=== PATIENT | female | born 1980 | race Caucasian/White ===

== ENCOUNTER 2016-09-29 16:10 | Observation (INO) | payer BC, OTHER ==
[2016-09-29] MEDS ORDERED: ASPIRIN 81 MG CHEW PO STA (16:47)
--- NOTE | 2016-09-29 16:50 | ED ---
Chest Pain HPI - General Chief Complaint: Chest Pain Stated Complaint: Chest Pain Time Seen by Provider: 09/29/16 16:29 Source: patient, RN notes reviewed Mode of arrival: ambulatory - History of Present Illness Initial Comments: 36-year-old female presents emergency Department chief complaint of chest pain. Patient states that approximately one hour ago she had a sudden onset of chest pain while she was laying down. Patient states that her symptoms are chest pain felt some radiation up to her left shoulder. She states she felt some paresthesias in her left arm. She states with onset of pain she had become very diaphoretic. Patient denies any nausea vomiting diarrhea constipation. Patient states she has no cardiac history denies hypertension, hyperlipidemia, diabetes. Patient states that she is occasional smoker. Patient states symptoms have resolved and only lasted a few minutes. Patient has no shortness of breath. Denies any headache or dizziness. - Related Data Home Medications Medication Instructions Recorded Confirmed Ibuprofen [Motrin] 800 mg PO DAILY PRN 09/29/16 09/29/16 Allergies Allergy/AdvReac Type Severity Reaction Status Date / Time No Known Allergies Allergy Verified 09/29/16 16:53 Review of Systems ROS Statement: Those systems with pertinent positive or pertinent negative responses have been documented in the HPI. ROS Other: All systems not noted in ROS Statement are negative. EKG Findings - EKG Comments: EKG Findings:: EKG performed at 16:41 normal sinus rhythm rate of 79 SD interval 142, QRS duration 100 QT/QTC 372/426 Past Medical History Past Medical History: No Reported History Additional Past Medical History / Comment(s): First was a for twins. This is her second . She has had care with Dr Petersen since 15 weeks. O+, abs neg, Rub Imm, Hep B neg, RPR NR, Quad normal. Normal anatomy US-had placenta previa that resolved. History of Any Multi-Drug Resistant Organisms: None Reported Past Surgical History: Section Past Anesthesia/Blood Transfusion Reactions: No Reported Reaction Past Psychological History: No Psychological Hx Reported Smoking Status: Former smoker Past Alcohol Use History: None Reported Past Drug Use History: None Reported - Past Family History Mother Family Medical History: Unable to Obtain General Exam General appearance: alert, in no apparent distress Head exam: Present: atraumatic, normocephalic, normal inspection ENT exam: Present: normal oropharynx Neck exam: Present: normal inspection, full ROM. Absent: tenderness, meningismus, lymphadenopathy Respiratory exam: Present: normal lung sounds bilaterally. Absent: respiratory distress, wheezes, rales, rhonchi, stridor, chest wall tenderness Cardiovascular Exam: Present: regular rate, normal rhythm, normal heart sounds. Absent: systolic murmur, diastolic murmur, rubs, gallop, clicks GI/Abdominal exam: Present: soft, normal bowel sounds. Absent: distended, tenderness, guarding, rebound, rigid Course Vital Signs 09/29/16 09/29/16 16:14 18:20 Temperature 97.8 F 98.2 F Pulse Rate 93 68 Respiratory 18 18 Rate Blood Pressure 113/66 105/66 O2 Sat by Pulse 100 98 Oximetry Disposition Clinical Impression: Unstable angina Disposition: ADMITTED IP TO THIS HOSP Condition: Fair
[2016-09-29 17:05] LABS: Anisocytosis Slight; Basophils % (A) 0 %; CH 23.3; CHCM 31.1; Eosinophils # (A) 0.2 k/uL (0-0.7); Eosinophils % (A) 2 %; HCT 34.8 % (34.0-46.0); HDW 2.79; HGB 10.8 gm/dL (11.4-16.0); Hypochromasia Moderate; Luc # (Auto) 0.14; Luc % (Auto) 2; Lymphocytes # (A) 2.1 k/uL (1.0-4.8); Lymphocytes % (A) 24 %; MCH 23.3 pg (25.0-35.0); MCV 75.2 fL (80.0-100.0); Mean Platelet Volume 6.1; Microcytosis Slight; Monocytes # (A) 0.5 k/uL (0-1.0); Monocytes % (A) 6 %; Neutrophils # (A) 5.9 k/uL (1.3-7.7); Neutrophils % (A) 67 %; RBC 4.63 m/uL (3.80-5.40); RDW 16.2 % (11.5-15.5); WBC 8.8 k/uL (3.8-10.6); WBC (Perox) 9.07
[2016-09-29 17:14] LABS: Partial Thromboplastin Time 24.6 sec (22.0-30.0); Prothrombin Time 9.9 sec (9.0-12.0)
--- NOTE | 2016-09-29 17:14 | XR ---
EXAMINATION TYPE: XR chest 2V DATE OF EXAM: 09/29/2016 5:08 PM COMPARISON: 01/02/15 HISTORY: Chest pain TECHNIQUE: Frontal and lateral views of the chest are obtained. FINDINGS: There is no focal air space opacity. No evidence for pnuemothorax.No pleural effusion. The cardiac silhouette size is within normal limits. The osseous structures are grossly intact. IMPRESSION: 1. No acute cardiopulmonary process.
[2016-09-29 17:25] LABS: ALT 18 U/L (9-52); AST 25 U/L (14-36); Alkaline Phosphatase 78 U/L (38-126); Anion Gap 10 mmol/L; Blood Urea Nitrogen 12 mg/dL (7-17); Calcium 8.9 mg/dL (8.4-10.2); Carbon Dioxide 24 mmol/L (22-30); Chloride 108 mmol/L (98-107); Glucose 86 mg/dL (74-99); Non-African American GFR(MDRD) >60 (>60 ml/min/1.73 sqM); Potassium 3.5 mmol/L (3.5-5.1); Sodium 142 mmol/L (137-145); Total Bilirubin 0.7 mg/dL (0.2-1.3); Total Protein 7.1 g/dL (6.3-8.2)
[2016-09-29 18:08] LABS: Creatine Kinase 244 U/L (30-135)
[2016-09-29 18:22] LABS: Troponin I <0.012 ng/mL (0.000-0.034)
[2016-09-29 18:27] LABS: Creatine Kinase MB 2.9 ng/mL (0.0-2.4)
[2016-09-29] MEDS ORDERED: NITROGLYCERIN SL TABS 0.4 MG TAB SUBLINGUAL PRN (18:40)
[2016-09-29] MEDS ORDERED: HEPARIN SODIUM,PORCINE 5,000 UNIT/ML 1 ML VIAL IV ONE (18:40)
[2016-09-29] MEDS ORDERED: HEPARIN SODIUM,PORCINE/D5W PMX 25,000 UNIT in DEXTROSE/WATER 1 500ML.BAG IV SCH (18:45)
[2016-09-29 20:58] VITALS: RESP 16
[2016-09-29] MEDS ORDERED: HEPARIN SODIUM,PORCINE 5,000 UNIT/ML 1 ML VIAL IV PRN (22:16)
[2016-09-29 23:14] LABS: Creatine Kinase 192 U/L (30-135)
[2016-09-29 23:26] LABS: Creatine Kinase MB 1.5 ng/mL (0.0-2.4); Troponin I <0.012 ng/mL (0.000-0.034)
[2016-09-30 02:34] LABS: Cholesterol 146 mg/dL (<200); HDL Cholesterol 52 mg/dL (40-60); Triglycerides 72 mg/dL (<150)
[2016-09-30 06:36] LABS: Creatine Kinase 151 U/L (30-135)
[2016-09-30 06:48] LABS: Creatine Kinase MB 1.1 ng/mL (0.0-2.4); Troponin I <0.012 ng/mL (0.000-0.034)
[2016-09-30] MEDS ORDERED: ASPIRIN 325 MG TAB PO SCH (09:00)
--- NOTE | 2016-09-30 10:06 | P.CRDCN ---
History of Present Illness Consult date: 09/30/16 Requesting physician: Mahesh Irizarry Consult reason: chest pain Chief complaint: Chest pain History of present illness: This is a pleasant 36-year-old female with no prior documented history of hypertension, no diabetes, no hyperlipidemia, no family history of premature coronary artery disease, positive nicotine dependence, patient states that she resumed smoking approximately 3 months ago, she smokes approximately one pack per week. According to the patient, she went to lie down with her son yesterday for a nap, when she developed midsternal chest pressure and heaviness which radiated down her left arm to the elbow area. According to the patient she became quite diaphoretic and short of breath. Symptoms lasted a total duration of approximately 5 minutes and then subsided. For this reason she came to the emergency room for further evaluation. Initial EKG on presentation here showed a normal sinus rhythm with non-specific ST-T wave changes and left axis deviation. Subsequent EKG performed this morning showed normal sinus rhythm with nonspecific ST-T wave changes in V1 and lead 3. Troponins were negative 3. Testing and 3.5. BUN 12, creatinine 0.6. A blood cell count 8.8 , hemoglobin 10.8, platelet count 340. Upon review of patient's prior hemoglobin levels, she appears to have had a low hemoglobin and back to 2013. He denies any blood in her stool, no black stools. At pressure 105/ 50 with a heart rate in the 60s, afebrile. 99% on room air. Chest x-ray does not reveal any acute cardiopulmonary process. At the time of my examination this morning she is currently chest pain-free. Past Medical History Past Medical History: No Reported History Additional Past Medical History / Comment(s): First was a for twins, pt was hospitalized for 6 days due to "fluid around heart or lungs" History of Any Multi-Drug Resistant Organisms: None Reported Past Surgical History: Section Past Anesthesia/Blood Transfusion Reactions: No Reported Reaction Past Psychological History: No Psychological Hx Reported Smoking Status: Current every day smoker Past Alcohol Use History: None Reported Past Drug Use History: None Reported - Past Family History Father Family Medical History: Cancer Additional Family Medical History / Comment(s): colon cancer Sister(s) Additional Family Medical History / Comment(s): heart mur mur Mother Family Medical History: Cancer Additional Family Medical History / Comment(s): breast cancer Medications and Allergies Home Medications Medication Instructions Recorded Confirmed Type Ibuprofen [Motrin] 800 mg PO DAILY PRN 09/29/16 09/29/16 History Allergies Allergy/AdvReac Type Severity Reaction Status Date / Time No Known Allergies Allergy Verified 09/29/16 21:31 Physical Exam Vitals: Vital Signs Temp Pulse Pulse Resp BP BP Pulse Ox 09/30/16 08:00 97.9 F 61 16 105/58 99 09/30/16 04:00 98.1 F 78 16 97/51 99 09/30/16 00:00 16 09/29/16 23:48 98.0 F 71 16 105/62 99 09/29/16 21:33 16 09/29/16 20:58 98.1 F 62 16 116/54 98 09/29/16 20:02 98.3 F 77 18 121/58 100 Intake and Output 09/29/16 09/30/16 09/30/16 22:59 06:59 14:59 Intake Total 240 607.265 Balance 240 607.265 Intake: IV 40 320 0.9@20 20 160 Heparin Sodium,Porcine/ 20 160 D5w Pmx 25,000 unit In Dextrose/Water 1 500ml. bag @ 11.6 UNITS/KG/HR 19 .99 mls/hr IV .Q24H IVORY Rx#:[id number] Intake, IV Titration 137.265 Amount Heparin Sodium,Porcine/ 137.265 D5w Pmx 25,000 unit In Dextrose/Water 1 500ml. bag @ 11.6 UNITS/KG/HR 19 .99 mls/hr IV .Q24H IVORY Rx#:[id number] Oral 200 150 Other: Voiding Method Toilet Toilet Toilet # Voids 1 2 PHYSICAL EXAMINATION: HEENT: [Head is atraumatic, normocephalic. Pupils equal, round. Neck is supple. There is no elevated jugular venous pressure.] HEART EXAMINATION: [Heart S1, S2 normal. No murmur or gallop heard.] CHEST EXAMINATION:[ Lungs are clear to auscultation and precussion. No chest wall tenderness is noted on palpation or with deep breathing.] ABDOMEN: [ Soft, nontender. Bowel sounds are heard. No organomegaly noted]. EXTREMITIES:[ 2+ peripheral pulses with no evidence of peripheral edema and no calf tenderness noted]. NEUROLOGIC [patient is awake, alert and oriented -3.] . Results 09/29/16 16:50 09/29/16 16:50 Cardiac Enzymes 09/29/16 09/30/16 Range/Units 22:38 05:32 CK-MB (CK-2) 1.5 1.1 (0.0-2.4) ng/mL Troponin I <0.012 <0.012 (0.000-0.034) ng/mL Coagulation 09/30/16 Range/Units 01:54 APTT 34.9 H (22.0-30.0) sec Current Medications Generic Name Dose Route Start Last Admin Trade Name Freq PRN Reason Stop Dose Admin Aspirin 325 mg 09/30/16 09:00 Aspirin PO DAILY [facility] Heparin Sodium (Porcine) 0 unit 09/29/16 22:16 09/30/16 02:57 Heparin IV 4,000 unit PER PROTOCOL PRN Administration Low PTT Protocol Heparin Sodium/Dextrose 25,000 500 mls @ 19.99 mls/hr 09/29/16 18:45 02:53 unit/ IV Solution IV 14.6 units/kg/hr .Q24H IVORY 25.16 mls/hr Protocol Titration 11.6 UNITS/KG/HR Nitroglycerin 0.4 mg 09/29/16 18:40 Nitrostat SUBLINGUAL Q5M PRN Chest Pain Intake and Output 09/29/16 09/30/16 09/30/16 22:59 06:59 14:59 Intake Total 240 607.265 Balance 240 607.265 Intake: IV 40 320 0.9@20 20 160 Heparin Sodium,Porcine/ 20 160 D5w Pmx 25,000 unit In Dextrose/Water 1 500ml. bag @ 11.6 UNITS/KG/HR 19 .99 mls/hr IV .Q24H IVORY Rx#:[id number] Intake, IV Titration 137.265 Amount Heparin Sodium,Porcine/ 137.265 D5w Pmx 25,000 unit In Dextrose/Water 1 500ml. bag @ 11.6 UNITS/KG/HR 19 .99 mls/hr IV .Q24H IVORY Rx#:[id number] Oral 200 150 Other: Voiding Method Toilet Toilet Toilet # Voids 1 2 EKG Interpretations (text) EKG shows a normal sinus rhythm with nonspecific ST-T wave changes. Assessment and Plan Plan: Assessment and plan #1 symptoms of midsternal chest pressure with radiation to the left arm, associated diaphoresis and shortness of breath. Troponins negative 3. Normal sinus rhythm on EKG with nonspecific ST-T wave changes. #2 nicotine dependence #3 cardiac risk factors negative for hypertension, no diabetes, no hyperlipidemia, no family history of premature coronary artery disease. Plan We will obtain an echocardiogram with Doppler study. Also discontinue the IV heparin. Patient has been advised to undergo stress echocardiographic study today. If the echo and stress echo are normal, from cardiology's perspective the patient may be discharged home to follow-up in the office post discharge. She's also been advised regarding the importance of smoking cessation. DNP note has been reviewed, I agree with a documented findings and plan of care. Patient was seen and examined.
--- NOTE | 2016-09-30 10:32 | ECHOF ---
Referral Reason:chest pain MEASUREMENTS -------- HEIGHT: 172.7 cm WEIGHT: 86.2 kg BP: 97/51 RVIDd: 2.5 cm (< 3.3) IVSd: 0.8 cm (0.6 - 1.1) LVIDd: 5.2 cm (3.9 - 5.3) LVPWd: 0.9 cm (0.6 - 1.1) IVSs: 1.1 cm LVIDs: 3.8 cm LVPWs: 1.1 cm LAESV Index (A-L): 11.12 ml/m Ao Diam: 3.1 cm (2.0 - 3.7) AV Cusp: 1.5 cm (1.5 - 2.6) LA Diam: 2.6 cm (2.7 - 3.8) MV EXCURSION: 15.792 mm (> 18.000) MV EF SLOPE: 95 mm/s (70 - 150) EPSS: 1.0 cm MV E Emil: 0.77 m/s MV DecT: 186 ms MV A Emil: 0.28 m/s MV E/A Ratio: 26.90 AV maxP.65 mmHg AV meanP.17 mmHg RAP: 5.00 mmHg RVSP: 24.22 mmHg FINDINGS -------- Sinus rhythm. This was a technically good study. LV size, wall thickness and systolic function are normal, with an EF greater than 55%. The right ventricle is normal in size and function. Normal LA size by volume 22+/-6 ml/m2. The right atrium is normal in size. The aortic valve is trileaflet, and appears structurally normal. No aortic stenosis or regurgitation. The mitral valve is normal. There is trace mitral regurgitation. Mild tricuspid regurgitation present. There is no evidence of pulmonary hypertension. The right ventricular systolic pressure, as measured by Doppler, is 24.22mmHg. Pulmonic valve appears structurally normal. There is no pulmonic regurgitation present. The aortic root, ascending aorta and aortic arch are normal. There is no pericardial effusion. CONCLUSIONS -------- 1. Sinus rhythm. 2. LV size, wall thickness and systolic function are normal, with an EF greater than 55%. 3. The right ventricle is normal in size and function. 4. There is trace mitral regurgitation. 5. Mild tricuspid regurgitation present. 6. There is no evidence of pulmonary hypertension. 7. The right ventricular systolic pressure, as measured by Doppler, is 24.22mmHg. 8. There is no pericardial effusion. VENDOR REPRESENTATIVES: Ailyn Louie RDCS
[2016-09-30 12:25] VITALS: BP 116/64; PULSE 82; TEMP 98.6
--- NOTE | 2016-09-30 12:42 | ECHOS ---
DATE OF SERVICE: 09/30/2016 AGE: 36Y SEX: F HT: 68" WT: 190 lbs. Protocol Kevan: X Others: Stress Echo Stage: III Dur. of Exercise: 7 minutes *Heart Rate Blood Pressure *Rest: 69 Rest: 91/62 * *Max. Achieved: 171 Maximum BP: 146/44 85% PMHR: 156 100% PMHR: 183 *METS: 7.1 INDICATIONS: Unstable angina. MEDICATIONS: CLINICAL INFORMATION: Chest pain, family history of coronary artery disease, history of smoking cigarettes 6 cigarettes a day. Resting ECG shows sinus rhythm, rate of 69 beats per minute, AR interval 0.16, QRS 0.08, normal ST-T waves. Utilizing a standard Kevan protocol, a symptom limited treadmill test was performed. Patient exercised for total of 7 minutes, attained a peak heart rate of 171 beats per minute, which is approximately 93% of the predicted maximum heart rate without any chest pain or pressure or ST segment deviations indicative of ischemia. Baseline images show normal thickening and contractility. Postexercise image shows improved contractility and thickening consistent with normal study. 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 Normal stress echocardiogram. 2. Patient has slightly less than average physical fitness. Patient attained a peak metabolic activity equivalent to 7 METs which is below for her age group, but the patient did not report any symptoms throughout the study.
--- NOTE | 2016-11-16 12:23 | HP ---
DATE OF ADMISSION: CHIEF COMPLAINT: A 36-year-old white female with chest pain. HISTORY OF PRESENT ILLNESS: A 36-year-old white female. She had a sudden onset, an hour before mentioned of chest pain, when she was laying down, radiating to her left shoulder. Some paresthesia in the left arm. She became diaphoretic. No nausea, vomiting, diarrhea, constipation. She continues to smoke at home. No shortness of breath. No dizziness. HOME MEDICINE: Ibuprofen 800 mg daily. ALLERGIES: No known drug allergies. REVIEW OF SYSTEMS: A 14-point review of systems negative except for as mentioned in HPI. EKG sinus rhythm. PAST MEDICAL HISTORY: Negative. SURGICAL HISTORY: for twins. SOCIAL HISTORY: She is a former smoker. No alcohol. No drugs. PHYSICAL EXAM: VITAL SIGNS: Stable, afebrile. GENERAL APPEARANCE: Alert, in no acute distress. HEAD: Normocephalic, atraumatic. ENT: External ear canals within normal limits. NECK: Supple. No adenopathy. RESPIRATORY: Transmitted upper airway sounds. No wheezes or rhonchi. CARDIOVASCULAR: Regular rate and rhythm, normal sounds. No murmurs, rubs, gallops. GI: Soft. Normal bowel sounds. No mass or organomegaly. Temperature 97, 98, pulse 68 to 93, respirations 12 to 18, blood pressure 105 to 113/60's, 02 is 98% to 100% on room air. ASSESSMENT: 1. Unstable angina. 2. Nicotine addiction. Please see further orders. Rule out myocardial infarction. Cardiology consulted.
--- NOTE | 2016-11-17 08:59 | DS ---
DATE OF ADMISSION: 09/29/2016 DATE OF DISCHARGE: 09/30/2016 DISCHARGE MEDICATION: Motrin 800 mg daily. CONDITION: Stable. PROGNOSIS: Guarded. Ambulate as tolerated. HOSPITAL COURSE OF EVENTS: This is a white female who came in with atypical chest pain. Chest x-ray was done, which was negative for any pneumonia or pulmonary issues. Labs were done, which showed normal white count, hemoglobin 10.8, normal liver and kidney enzymes. Negative three troponins. Cholesterol 146. She had a stress echo, which was normal for any obstruction or blockage at which time she was discharged home after being cleared by Cardiology for discharge. Follow up as an outpatient.
== END 2016-09-30 15:34 | disposition home or self-care (01) ==
LOC: EC 16:10 → 3OBS 19:46
PROVIDERS: ADMIT Family Medicine; ATTEND Family Medicine
DX: R07.89 Other chest pain (principal); R61 Generalized hyperhidrosis; R06.02 Shortness of breath; F17.200 Nicotine dependence, unspecified, uncomplicated; D64.9 Anemia, unspecified; Z80.0 Family history of malignant neoplasm of digestive organs; Z80.3 Family history of malignant neoplasm of breast; R20.2 Paresthesia of skin
CPT/HCPCS: 96365; 96366 ×2; 96376; 99285; 36415; 93005; 93017; 93306; 93350; 80061; 80053; 82550 ×2; 82553 ×2; 83690; 83735; 84484 ×2; 85025; 85610; 85730 ×2; 71020; G0378 ×2; J1644 ×3

== ENCOUNTER 2017-12-15 16:52 | Emergency (ER) | payer OTHER ==
[2017-12-15 17:00] VITALS: BP 109/71; PULSE 72; RESP 18; TEMP 98.4
[2017-12-15] MEDS ORDERED: IBUPROFEN 600 MG TAB PO STA (18:49)
--- NOTE | 2017-12-15 19:15 | ED ---
General Adult HPI - General Chief complaint: Fall Stated complaint: LEFT RIB PAIN/INJURY Time Seen by Provider: 12/15/17 18:26 Source: patient, RN notes reviewed Mode of arrival: ambulatory Limitations: no limitations - History of Present Illness Initial comments: 37-year-old female presents to the emergency department for a chief complaint of left rib injury 2 hours. Patient states she was walking through her kitchen when she slipped and fell against the edge of the table. Patient states it has been painful to take a deep breath. Patient states it is painful to move and twist. Patient denies pain in her neck back or abdomen. Patient did not hit her head. Patient denies any chest pain. Patient has not taken Motrin or anything for pain. Patient has not iced the area. Patient denies any chance of .Patient has no other complaints at this time including shortness of breath, chest pain, abdominal pain, nausea or vomiting, headache, or visual changes. - Related Data Previous Rx's Medication Instructions Recorded Ibuprofen [Motrin] 600 mg PO Q6HR PRN #20 tab 12/15/17 Allergies Allergy/AdvReac Type Severity Reaction Status Date / Time No Known Allergies Allergy Verified 12/15/17 18:10 Review of Systems ROS Statement: Those systems with pertinent positive or pertinent negative responses have been documented in the HPI. ROS Other: All systems not noted in ROS Statement are negative. Past Medical History Past Medical History: No Reported History Additional Past Medical History / Comment(s): First was a for twins, pt was hospitalized for 6 days due to "fluid around heart or lungs" History of Any Multi-Drug Resistant Organisms: None Reported Past Surgical History: Section Past Anesthesia/Blood Transfusion Reactions: No Reported Reaction Past Psychological History: No Psychological Hx Reported Smoking Status: Current every day smoker Past Alcohol Use History: Occasional Past Drug Use History: None Reported - Past Family History Father Family Medical History: Cancer Additional Family Medical History / Comment(s): colon cancer Sister(s) Additional Family Medical History / Comment(s): heart mur mur Mother Family Medical History: Cancer Additional Family Medical History / Comment(s): breast cancer General Exam Limitations: no limitations General appearance: alert, in no apparent distress Head exam: Present: atraumatic, normocephalic, normal inspection Eye exam: Present: normal appearance ENT exam: Present: normal exam, mucous membranes moist Neck exam: Present: normal inspection, full ROM. Absent: tenderness, meningismus, lymphadenopathy Respiratory exam: Present: normal lung sounds bilaterally, chest wall tenderness (left lateral/anterior rib tenderness around rib 9). Absent: respiratory distress, wheezes, rales, rhonchi, stridor Cardiovascular Exam: Present: regular rate, normal rhythm, normal heart sounds. Absent: systolic murmur, diastolic murmur, rubs, gallop, clicks Course Vital Signs 12/15/17 16:58 Temperature 98.4 F Pulse Rate 72 Respiratory 18 Rate Blood Pressure 109/71 O2 Sat by Pulse 100 Oximetry Medical Decision Making - Medical Decision Making 37-year-old female presents to the emergency department for a chief complaint of left rib pain 2 hours. Patient slipped and fell against the edge of a table. Patient did not lose consciousness or injure anything else. Neck and back are not painful. On exam patient has tenderness to the left ribs around rib 9. Patient has pain with twisting of the ribs. X-ray of the chest shows heart and mediastinum are normal. Lungs are clear. no evidence of pleural effusion or pneumothorax. Left ribs appear intact. Patient was educated to take 10 deep breaths per hour as she could develop pneumonia if she does not. She was educated on pillow splinting against the left side. She will be given Motrin for pain. She will follow up with primary care in 1-2 days. Disposition Clinical Impression: Contusion of rib on left side Disposition: HOME SELF-CARE Condition: Good Instructions: Rib Contusion (ED) Additional Instructions: Please make sure to take 10 deep breaths every hour. Take Motrin or Tylenol for pain. Use a pillow to splint against the left side of the ribs. Follow-up with primary care in 1-2 days. If symptoms worsen or you develop cough return to the emergency department. Prescriptions: Ibuprofen [Motrin] 600 mg PO Q6HR PRN #20 tab PRN Reason: Pain Is patient prescribed a controlled substance at d/c from ED?: No Referrals: Lukas Joseph MD [Primary Care Provider] - 1-2 days Time of Disposition: 19:43
--- NOTE | 2017-12-15 19:24 | XR ---
EXAMINATION TYPE: XR ribs LT w pa chest xray DATE OF EXAM: 12/15/2017 COMPARISON: NONE HISTORY: Left rib pain TECHNIQUE: 5 views FINDINGS: Heart and mediastinum are normal. Lungs are clear. Diaphragm is normal. There is no evidenc e of pleural effusion or pneumothorax. Left ribs appear intact. IMPRESSION: Normal chest. Normal left ribs.
== END 2017-12-15 19:51 | disposition home or self-care (01) ==
LOC: EC 16:52
DX: S20.212A Contusion of left front wall of thorax, initial encounter (principal); F17.200 Nicotine dependence, unspecified, uncomplicated; W01.190A Fall on same level from slipping, tripping and stumbling with subsequent striking against furniture, initial encounter; Y92.000 Kitchen of unspecified non-institutional (private) residence as the place of occurrence of the external cause; Y93.01 Activity, walking, marching and hiking
CPT/HCPCS: 99283

== ENCOUNTER 2018-12-29 16:39 | Emergency (ER) | payer OTHER ==
[2018-12-29 16:46] VITALS: BP 107/67; PULSE 67; RESP 16; TEMP 98
--- NOTE | 2018-12-29 17:06 | ED ---
General Adult HPI - General Chief complaint: Extremity Injury, Upper Stated complaint: Elbow injury-[facility] Time Seen by Provider: 12/29/18 16:47 Source: patient Mode of arrival: ambulatory Limitations: no limitations - History of Present Illness Initial comments: Patient is a 38-year-old female presenting to emergency Department with right elbow pain. Patient reports she was working earlier today when she accidentally extended her right arm causing trauma to the right elbow. Patient reports most of the pain is located along the posterior lateral aspect of the right elbow. Patient reports ecchymosis and mild edema at the site of injury. Patient reports mild numbness and tingling at the time of incident but now has resolved. Patient reports pain of full extension is alleviated with rest. Patient reports the pain is a 5 and throbbing. Patient denies taking any medication to relieve the symptoms. - Related Data Previous Rx's Medication Instructions Recorded Ibuprofen [Motrin] 600 mg PO Q6HR PRN #20 tab 12/15/17 Allergies Allergy/AdvReac Type Severity Reaction Status Date / Time No Known Allergies Allergy Verified 12/29/18 16:43 Review of Systems ROS Statement: Those systems with pertinent positive or pertinent negative responses have been documented in the HPI. ROS Other: All systems not noted in ROS Statement are negative. Past Medical History Past Medical History: No Reported History Additional Past Medical History / Comment(s): First was a for twins, pt was hospitalized for 6 days due to "fluid around heart or lungs" History of Any Multi-Drug Resistant Organisms: None Reported Past Surgical History: Section Past Anesthesia/Blood Transfusion Reactions: No Reported Reaction Past Psychological History: No Psychological Hx Reported Smoking Status: Current every day smoker Past Alcohol Use History: Occasional Past Drug Use History: None Reported - Past Family History Father Family Medical History: Cancer Additional Family Medical History / Comment(s): colon cancer Sister(s) Additional Family Medical History / Comment(s): heart mur mur Mother Family Medical History: Cancer Additional Family Medical History / Comment(s): breast cancer General Exam - General Exam Comments Initial Comments: General: Well-developed well-nourished distress HEENT: Normocephalic/atraumatic, PERLL, pharynx erythema, swallowing well, EAC no erythema, no exudates, TM clear, no cervical lymph nodes Neck: Supple, nontender, trachea midline Chest/Lungs: Normal respirations, no signs of respiratory distress clear to auscultation bilaterally no wheezes, rales, rhonchi Cardiac: Regular rate and rhythm, normal S1-S2, no murmurs rubs or gallops Abdomen/GI: Soft nontender, bowel sounds equal or quadrant x4, no guarding, no rebound no CVA tenderness Musculoskeletal: Tenderness along the posterior lateral aspect of the right elbow, ecchymosis and edema at the site of injury, no laceration or abrasion, full range of motion, tenderness on palpation, +2 radial pulses bilaterally, normal capillary refill Skin: Warmth, no rashes or lesions, no cyanosis or diaphoresis Neurologic: AAO x 3, CN 2-12 intact, Psychiatric: Mood and affect normal, judgment normal Limitations: no limitations Course Vital Signs 12/29/18 16:43 Temperature 98 F Pulse Rate 67 Respiratory 16 Rate Blood Pressure 107/67 O2 Sat by Pulse 98 Oximetry Procedures - Orthopedic Splinting/Casting Injury #1 Side: right Upper Extremity Injury Location: elbow Upper Extremity Immobilizer: Justice wrap Medical Decision Making - Medical Decision Making Patient is a 38-year-old female presents emergency Department with right elbow pain. X-rays negative for acute fracture or dislocations. At this moment I suspect a contusion to the right elbow. Patient advised to alternate between Tylenol and ibuprofen for pain control. Patient advised to keep all elevated and apply ice compresses to minimize swelling. Patient advised to follow-up with orthopedics. Strict return parameters were thoroughly discussed with patient who is understanding and agreeable. Case discussed with physician. Disposition Clinical Impression: Contusion of elbow, right Disposition: HOME SELF-CARE Condition: Stable Instructions (If sedation given, give patient instructions): Elbow Sprain (ED) Additional Instructions: Alternate between Tylenol and ibuprofen for pain control. Apply ice compress and elevate elbow to minimize symptoms. Please follow with orthopedics. Please return to emergency department if symptoms worsen. Is patient prescribed a controlled substance at d/c from ED?: No Referrals: Lukas Joseph MD [Primary Care Provider] - 1-2 days Kike Cedeno PAC [PHYSICIAN CONDITIONER TUMBLER] - 1-2 days Time of Disposition: 18:06
--- NOTE | 2018-12-29 17:50 | XR ---
EXAMINATION TYPE: XR elbow complete RT DATE OF EXAM: 12/29/2018 COMPARISON: NONE HISTORY: None TECHNIQUE: 3 views FINDINGS: There is no fracture nor dislocation. Joint spaces are normal. There is no sign of joint ef fusion. IMPRESSION: Negative right elbow exam.
== END 2018-12-29 18:20 | disposition home or self-care (01) ==
LOC: EC 16:39
DX: S50.01XA Contusion of right elbow, initial encounter (principal); F17.200 Nicotine dependence, unspecified, uncomplicated; W22.8XXA Striking against or struck by other objects, initial encounter; Y92.69 Other specified industrial and construction area as the place of occurrence of the external cause; Y99.0 Civilian activity done for income or pay
CPT/HCPCS: 99283

== ENCOUNTER 2020-09-09 15:35 | Emergency (ER) | payer OTHER ==
--- NOTE | 2020-09-09 16:59 | ED ---
General Adult HPI - General Stated complaint: Lft shoulder pain - History of Present Illness Initial comments: 40-year-old female presents to the emergency department with a chief complaint left shoulder pain. This started about 3 days ago after she stretched and he heard a "tear". She does have occasional tingling sensation going to her fingers. She reports a throbbing pain that is exacerbated whenever her arm straight down and pulled a gravity. She denies other injuries to the area. Denies any chest pain or shortness of breath. - Related Data Previous Rx's Medication Instructions Recorded Ibuprofen [Motrin] 600 mg PO Q6HR PRN #20 tab 12/15/17 Allergies Allergy/AdvReac Type Severity Reaction Status Date / Time naproxen [From Aleve] Allergy Rash/Hives Verified 09/09/20 17:01 Review of Systems ROS Statement: Those systems with pertinent positive or pertinent negative responses have been documented in the HPI. ROS Other: All systems not noted in ROS Statement are negative. Past Medical History Past Medical History: No Reported History Additional Past Medical History / Comment(s): First was a for twins, pt was hospitalized for 6 days due to "fluid around heart or lungs" History of Any Multi-Drug Resistant Organisms: None Reported Past Surgical History: Section Past Anesthesia/Blood Transfusion Reactions: No Reported Reaction Past Psychological History: No Psychological Hx Reported Past Alcohol Use History: Occasional Past Drug Use History: None Reported - Past Family History Father Family Medical History: Cancer Additional Family Medical History / Comment(s): colon cancer Sister(s) Additional Family Medical History / Comment(s): heart mur mur Mother Family Medical History: Cancer Additional Family Medical History / Comment(s): breast cancer General Exam Limitations: no limitations General appearance: alert, in no apparent distress Head exam: Present: atraumatic, normocephalic, normal inspection Eye exam: Present: normal appearance, PERRL, EOMI Pupils: Present: normal accommodation ENT exam: Present: normal exam, normal oropharynx, mucous membranes moist Neck exam: Present: normal inspection. Absent: tenderness, meningismus, full ROM Respiratory exam: Present: normal lung sounds bilaterally. Absent: respiratory distress, wheezes Cardiovascular Exam: Present: regular rate, normal rhythm, normal heart sounds Extremities exam: Present: normal inspection, normal capillary refill, other (Sensation intact in bilateral upper extremities. Palpable ulnar and radial pulses). Absent: full ROM (Limited range of motion above 90 and the left shoulder.), tenderness, pedal edema, joint swelling, calf tenderness Back exam: Present: normal inspection, full ROM. Absent: tenderness Neurological exam: Present: alert, oriented X3 Psychiatric exam: Present: normal affect, normal mood Skin exam: Present: warm, dry, intact, normal color Course Vital Signs 09/09/20 16:58 Temperature 97.7 F Pulse Rate 76 Respiratory 18 Rate Blood Pressure 119/73 O2 Sat by Pulse 100 Oximetry Medical Decision Making - Medical Decision Making 40-year-old female presents emergency Department with chief complaint low shoulder pain. Physical examination reveals a neurovascularly intact extremity. No chest pain or shortness of breath. X-rays are negative. Possible rotator cuff injury. Dr. Howell also examined the patient and is in agreement with the treatment plan. Advised to follow-up with orthopedics. Tylenol or Motrin for pain. Disposition Clinical Impression: Injury of left rotator cuff Disposition: HOME SELF-CARE Condition: Stable Instructions (If sedation given, give patient instructions): Rotator Cuff Injury (ED) Additional Instructions: Follow-up with biochemistry specialist. Return to emergency department if symptoms worsen. Is patient prescribed a controlled substance at d/c from ED?: No Referrals: Lukas Joseph MD [Primary Care Provider] - 1-2 days Time of Disposition: 19:18
[2020-09-09 17:02] VITALS: BP 119/73; PULSE 76; RESP 18; TEMP 97.7
--- NOTE | 2020-09-09 18:13 | XR ---
Result: Clinical History: Pain. Comparison: None available. Technique: 3 views of the left shoulder. Findings: The bone mineralization is appropriate for age. No acute fracture or dislocation is seen. The acromioclavicular and glenohumeral joints are preserve d . The humeral head is well-seated in the glenoid. The visualized lung is clear. Impression: No acute osseous abnormality.
== END 2020-09-09 19:25 | disposition home or self-care (01) ==
LOC: EC 15:35
DX: S46.002A Unspecified injury of muscle(s) and tendon(s) of the rotator cuff of left shoulder, initial encounter (principal); X50.1XXA Overexertion from prolonged static or awkward postures, initial encounter
CPT/HCPCS: 99283

== ENCOUNTER 2020-10-29 12:30 | Emergency (ER) | payer OTHER ==
[2020-10-29 12:35] VITALS: BP 132/78; PULSE 58; RESP 18; TEMP 97.8
[2020-10-29] MEDS ORDERED: HYDROcodone/APAP 5-325MG 1 EACH TAB PO STA (12:55)
[2020-10-29] MEDS ORDERED: CYCLOBENZAPRINE 10MG STARTER 3 TAB BTL PO STA (12:55)
--- NOTE | 2020-10-29 13:45 | XR ---
MR spine HISTORY: Low back pain 3 views lumbar spine There is a mild spinal curvature. Multilevel spondylosis is present. Sclerosis present in the posteri or elements of the lower lumbar spine. There is some loss of disc height at L5-S1, suspect some possi ble calcification along the disc space at L3-4. Lumbar vertebral bodies show preserved height and bon e mineralization. IMPRESSION: Mild degenerative disc disease, facet arthropathy. Spinal curvature. Additional findings above. Lumbar MRI may be of benefit.
--- NOTE | 2020-10-29 14:03 | ED ---
Back Pain HPI - General Chief Complaint: Back Pain/Injury Stated Complaint: Lower Back Pain Time Seen by Provider: 10/29/20 12:38 Source: patient, family Limitations: no limitations - History of Present Illness Initial Comments: 40-year-old male presenting to the ER today for chief complaint of low back pain. 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 She does not remember any specific direct injury but after work she noticed her back was sore she states this morning she could barely get up secondary to low back pain. Patient does have loss of bowel bladder control urinary retention shows a weakness or sensation deficits of the lower extremities she states walking doesn't increase the pain. She denies fevers IV drug user history of cancer or . Patient denies any falls or direct trauma. Patient is noted additional complaints upon arrival patient appears nontoxic in no acute distress - Related Data Previous Rx's Medication Instructions Recorded Ibuprofen [Motrin] 600 mg PO Q6HR PRN #20 tab 12/15/17 Cyclobenzaprine [Flexeril] 10 mg PO TID PRN 3 Days #9 tab 10/29/20 Allergies Allergy/AdvReac Type Severity Reaction Status Date / Time naproxen [From Aleve] Allergy Rash/Hives Verified 10/29/20 12:34 Review of Systems ROS Statement: Those systems with pertinent positive or pertinent negative responses have been documented in the HPI. ROS Other: All systems not noted in ROS Statement are negative. Past Medical History Past Medical History: No Reported History Additional Past Medical History / Comment(s): First was a for twins, pt was hospitalized for 6 days due to "fluid around heart or lungs" History of Any Multi-Drug Resistant Organisms: None Reported Past Surgical History: Section Past Anesthesia/Blood Transfusion Reactions: No Reported Reaction Past Psychological History: No Psychological Hx Reported Smoking Status: Never smoker Past Alcohol Use History: Occasional Past Drug Use History: None Reported - Past Family History Father Family Medical History: Cancer Additional Family Medical History / Comment(s): colon cancer Sister(s) Additional Family Medical History / Comment(s): heart mur mur Mother Family Medical History: Cancer Additional Family Medical History / Comment(s): breast cancer General Exam - General Exam Comments Initial Comments: General: The patient is awake and alert, in no distress Eye: Pupils are equal, round and reactive to light, extra-ocular movements are intact. No nystagmus. There is normal conjunctiva bilaterally. No signs of icterus. Ears, nose, mouth and throat: There are moist mucous membranes and no oral lesions. Neck: The neck is supple, there is no tenderness or JVD. Cardiovascular: There is a regular rate and rhythm. No murmur, rub or gallop is appreciated. Respiratory: Lungs are clear to auscultation, respirations are non-labored, breath sounds are equal. No wheezes, stridor, rales, or rhonchi. Gastrointestinal: Soft, non-distended, non-tender abdomen without masses or organomegaly noted. There is no rebound or guarding present. Musculoskeletal: Normal inspection cerivcal thoracic and lumbar spine. Patient has mild midline but mostly paraspinal tenderness of the lumbar spine Normal ROM, no tenderness. Strength 5/5 of the LE b/l. Sensation intact of the LE b/l including the saddle region. Radial and DP pulses equal bilaterally 2+. Neurological: A&O x 3. CN II-XII intact, There are no obvious motor or sensory deficits. Coordination appears grossly intact. Speech is normal. Skin: Skin is warm and dry and no rashes or lesions are noted. Psychiatric: Cooperative, appropriate mood & affect, normal judgment. Limitations: no limitations Course Vital Signs 10/29/20 12:32 Temperature 97.8 F Pulse Rate 58 L Respiratory 18 Rate Blood Pressure 132/78 O2 Sat by Pulse 99 Oximetry Medical Decision Making - Medical Decision Making 40yo female presenting for cc of low back pain. mostly paraspinal. no injury. xr (-). no history provided or exam findings concerning for cauda equina at this time out 2 patient symptomatically recommended rest and fried work note and have patient follow up with her pcp. discussed concerning return parameters and pateint discharged appearing well. Disposition Clinical Impression: Low back pain Disposition: HOME SELF-CARE Condition: Good Instructions (If sedation given, give patient instructions): Acute Low Back Pain (ED) Additional Instructions: Please use medication as discussed. Please follow-up with family doctor in the next 2 days. Rest, and apply heat to the back. Please return to emergency room if the symptoms increase or worsen or for any other concerns. Prescriptions: Cyclobenzaprine [Flexeril] 10 mg PO TID PRN 3 Days #9 tab PRN Reason: Muscle Spasm Is patient prescribed a controlled substance at d/c from ED?: No Referrals: Lukas Joseph MD [Primary Care Provider] - 1-2 days Time of Disposition: 14:08
== END 2020-10-29 14:26 | disposition home or self-care (01) ==
LOC: EC 12:30
DX: M54.5 Low back pain (principal)
CPT/HCPCS: 72100

== ENCOUNTER → 2021-10-08 | Outpatient (CLI) | payer OTHER ==
--- NOTE | 2021-10-08 22:36 | US ---
EXAMINATION TYPE: US pelvic complete DATE OF EXAM: 10/08/2021 COMPARISON: CT 2014 CLINICAL HISTORY: N92.6 IRREGULAR MENUSTRATION. Spotting in between periods x 2 months, heavy period x 1 month, 2, para 2, history of 2 c-sections and tubal ligation TECHNIQUE: . Transabdominal sonographic images of the pelvis were acquired. Transvaginal sonographi c images were medically necessary to better assess the following anatomy: endometrium Date of LMP: 1 week ago EXAM MEASUREMENTS: Uterus: 10.3 x 5.8 x 6.5 cm Endometrial Stripe: 1.1 cm Right Ovary: 2.5 x 1.5 x 2.0 cm Left Ovary: 4.7 x 2.8 x 3.6 cm 1. Uterus: prominent, anteverted, heterogeneous, multiple nabothian cysts, fluid in endocervical can al 2. Endometrium: thickened for patient's LMP 3. Right Ovary: wnl 4. Left Ovary: 2.6cm cystic area 5. Bilateral Adnexa: wnl 6. Posterior cul-de-sac: wnl IMPRESSION: 1. Thickened endometrial canal 1.1 cm. 2. 2.6 cm left ovarian cyst. 3. Follow up exams are recommended.
== END | disposition home or self-care (01) ==
LOC: RADUSWWP 09:39
PROVIDERS: ATTEND Student in an Organized Health Care Education/Training Program
DX: N92.6 Irregular menstruation, unspecified (principal); R53.1 Weakness; N92.0 Excessive and frequent menstruation with regular cycle; N83.202 Unspecified ovarian cyst, left side
CPT/HCPCS: 76830; 76856

== ENCOUNTER → 2024-05-16 | Outpatient (CLI) | payer OTHER ==
[2024-05-17 02:36] LABS: Basophils # (A) 0.05 X 10*3/uL (0.00-0.10); Basophils % (A) 0.5 %; Eosinophils # (A) 0.14 X 10*3/uL (0.04-0.35); Eosinophils % (A) 1.3 %; HCT 43.1 % (37.2-46.3); HGB 14.3 g/dL (12.0-15.0); Lymphocytes # (A) 2.35 X 10*3/uL (0.90-5.00); Lymphocytes % (A) 22.3 %; MCH 29.4 pg (27.0-32.0); MCHC 33.2 g/dL (32.0-37.0); MCV 88.5 FL (80.0-97.0); Mean Platelet Volume 10.5 FL (9.5-12.2); Monocytes # (A) 0.72 X 10*3/uL (0.20-1.00); Monocytes % (A) 6.8 %; NRBC Per 100 WBC 0 X 10*3/uL (0.00-0.01); Neutrophils # (A) 7.23 X 10*3/uL (1.80-7.70); Neutrophils % (A) 68.7 %; Platelet Count 343 X 10*3/uL (140-440); RBC 4.87 X 10*6/uL (4.10-5.20); RDW 13.2 % (11.5-14.5); WBC 10.53 X 10*3/uL (4.50-10.00)
[2024-05-17 03:40] LABS: ALT 16 U/L (8-44); AST 21 U/L (13-35); Albumin 4.1 g/dL (3.8-4.9); Albumin/Globulin Ratio 1.71 Ratio (1.60-3.17); Alkaline Phosphatase 86 U/L (41-126); BUN/Creat Ratio 17.43 Ratio (12.00-20.00); Blood Urea Nitrogen 12.2 mg/dL (9.0-27.0); Calcium 8.9 mg/dL (8.7-10.3); Carbon Dioxide 23.1 mmol/L (21.6-31.8); Chloride 103 mmol/L (96-109); Chol/HDL Ratio 3.42 Ratio; Globulin 2.4 g/dL (1.6-3.3); Glucose 82 mg/dL (70-110); Potassium 4.1 mmol/L (3.5-5.5); Sodium 141 mmol/L (135-145); Total Bilirubin 0.7 mg/dL (0.3-1.2); Total Protein 6.5 g/dL (6.2-8.2); VLDL Calculation 16.44 mg/dL (5.00-40.00)
[2024-05-17 04:15] LABS: Ferritin 47.9 ng/mL (10.0-291.0); Iron 107 UG/DL (50-170)
[2024-05-17 04:27] LABS: Vitamin B12 <150.0 pg/mL (200.0-944.0)
== END | disposition home or self-care (01) ==
LOC: LABWHC1 15:44
PROVIDERS: ATTEND Family Medicine
DX: N92.6 Irregular menstruation, unspecified (principal); E66.811 Obesity, class 1; G56.01 Carpal tunnel syndrome, right upper limb; D64.9 Anemia, unspecified; R73.03 Prediabetes; R53.83 Other fatigue; Z68.32 Body mass index [BMI] 32.0-32.9, adult
CPT/HCPCS: 36415; 80053; 80061; 82607; 82728; 83036; 83540; 85025

== ENCOUNTER → 2024-05-26 | Outpatient (CLI) | payer OTHER ==
--- NOTE | 2024-05-30 16:26 | MM ---
Reason for Exam: Screening (asymptomatic). Last mammogram was performed 3 year(s) and 4 month(s) ago. Patient History: Menarche at age 9. First Full-Term at age 26. Patient has history of breast feeding. Maternal cousin had breast cancer, age 52. Maternal grandmother had breast cancer, age 84. Last menstrual period: 12/16/2021 Risk Values: Savannah 5 year model risk: 1.0%. NCI Lifetime model risk: 11.6%. Prior Study Comparison: 01/09/2021 Bilateral MG screening mammo w CAD - 2, Unknown. Tissue Density: The breasts are heterogeneously dense, which may obscure small masses. Findings: Analyzed By CAD. There is no suspicious group of microcalcifications or new suspicious mass in either breast. Overall Assessment: Benign, BI-RAD 2 Management: Screening Mammogram of both breasts in 1 year. Patient should continue monthly self-breast exams. A clinical breast exam by your physician is recommended on an annual basis. This exam should not preclude additional follow-up of suspicious palpable abnormalities. Note on Savannah scores and lifetime risk: 1. A Savannah score greater than 3% is considered moderate risk. If this is the case, consider specialist referral to assess eligibility for a risk reducing agent. 2. If overall lifetime risk for the development of breast cancer is 20% or higher, the patient may qualify for future screening with alternating mammogram and breast MRI. [facility], , 05/30/2024 4:24 PM. Electronically signed and approved by: Mihaela Childress M.D. Radiologist
== END | disposition home or self-care (01) ==
LOC: RADMAMWWP 16:00
PROVIDERS: ATTEND Family Medicine
DX: Z12.31 Encounter for screening mammogram for malignant neoplasm of breast (principal); Z80.3 Family history of malignant neoplasm of breast; R92.333 Mammographic heterogeneous density, bilateral breasts
CPT/HCPCS: 77067

== ENCOUNTER 2024-06-16 23:02 | Observation (INO) | payer OTHER ==
[2024-06-16 23:44] LABS: Basophils % (A) 0 %; Eosinophils # (A) 0.2 k/uL (0-0.7); Eosinophils % (A) 1 %; HGB 14.8 gm/dL (11.4-16.0); Lymphocytes # (A) 1.8 k/uL (1.0-4.8); Lymphocytes % (A) 10 %; MCH 29.9 pg (25.0-35.0); MCHC 34.4 g/dL (31.0-37.0); MCV 86.8 fL (80.0-100.0); Mean Platelet Volume 7.3; Monocytes # (A) 0.6 k/uL (0-1.0); Monocytes % (A) 3 %; Neutrophils # (A) 15.8 k/uL (1.3-7.7); Neutrophils % (A) 85 %; Platelet Count 335 k/uL (150-450); RBC 4.95 m/uL (3.80-5.40); RDW 12.9 % (11.5-15.5); WBC 18.6 k/uL (3.8-10.6)
--- NOTE | 2024-06-16 23:47 | ED ---
General Adult HPI - General Chief complaint: Abdominal Pain Stated complaint: Abdominal Pain, Nausea Time Seen by Provider: 06/16/24 23:15 Source: patient, RN notes reviewed, old records reviewed Mode of arrival: ambulatory Limitations: no limitations - History of Present Illness Initial comments: Patient is a 44-year-old female presents emergency department complaining of abdominal pain. She has a history of chronic constipation. Last bowel movement was on June 11, 2024. She has gone this long before without 1 however she states that when she had the bowel movement on the , it is more liquidy than normal. She has been taking stool softeners without much improvement. Does have a history of multiple section as well as uterine ablation. Has never had a colonoscopy or EGD. No significant past medical history otherwise. Currently being treated for bronchitis with doxycycline and steroids. Patient does have low-grade fever currently. Symptoms of bronchitis have been present since Wednesday. Is currently Wednesday evening. Patient has no other acute complaints. Denies urinary complaints. Denies any vaginal bleeding or discharge. Endorses nausea but no emesis. - Related Data Previous Rx's Medication Instructions Recorded Ibuprofen [Motrin] 600 mg PO Q6HR PRN #20 tab 12/15/17 Cyclobenzaprine [Flexeril] 10 mg PO TID PRN 3 Days #9 tab 10/29/20 Allergies Allergy/AdvReac Type Severity Reaction Status Date / Time naproxen [From Aleve] Allergy Rash/Hives Verified 06/16/24 23:13 Review of Systems ROS Statement: Those systems with pertinent positive or pertinent negative responses have been documented in the HPI. Review of Systems: CONST: Denies fever EYES: Denies blurry vision ENT: Denies nasal congestion C/V: Denies Chest pain RESP: Denies shortness of breath GI: Endorses abdominal pain : Denies dysuria SKIN: Denies rash. MSK: Denies joint pain. NEURO: Denies headache ROS Other: All systems not noted in ROS Statement are negative. Past Medical History Past Medical History: No Reported History Additional Past Medical History / Comment(s): First was a for twins, pt was hospitalized for 6 days due to "fluid around heart or lungs" History of Any Multi-Drug Resistant Organisms: None Reported Past Surgical History: Section, Uterine Ablation Past Anesthesia/Blood Transfusion Reactions: No Reported Reaction Past Psychological History: No Psychological Hx Reported Smoking Status: Never smoker Past Alcohol Use History: Occasional Past Drug Use History: None Reported - Past Family History Father Family Medical History: Cancer Additional Family Medical History / Comment(s): colon cancer Sister(s) Additional Family Medical History / Comment(s): heart mur mur Mother Family Medical History: Cancer Additional Family Medical History / Comment(s): breast cancer General Exam - General Exam Comments Initial Comments: General: Appears in mild to moderate distress secondary to abdominal pain. HEAD: Normal with no signs of head trauma. EYES: EOMI ENT: Hearing grossly intact, normal oropharynx. RESPIRATORY: Clear breath sounds bilaterally. No wheezes, rales, or rhonchi. C/V: Regular rate and rhythm. S1 and S2 auscultated, no edema, peripheral pulses 2+ and intact throughout ABD: Abdomen is soft, nondistended. Tender to palpation centrally and periumbilically. Somewhat generalized. No guarding or rebound tenderness. No peritoneal signs. EXT: Normal range of motion, no obvious deformity SKIN: No rashes or lesions observed on exposed skin. NEURO: Alert and oriented x 4. Limitations: no limitations Course Vital Signs 06/16/24 06/17/24 06/17/24 23:09 00:13 01:00 Temperature 100.2 F H 99.8 F H Pulse Rate 72 70 81 Respiratory 18 18 18 Rate Blood Pressure 107/68 94/78 102/65 O2 Sat by Pulse 98 98 98 Oximetry Medical Decision Making - Medical Decision Making Was pt. sent in by a medical professional or institution (, PA, ASSISTANT LIBRARIAN, urgent care, hospital, or skilled nursing...) When possible be specific @ -No Did you speak to anyone other than the patient for history (EMS, parent, family, police, friend...)? What history was obtained from this source @ -No Did you review nursing and triage notes (agree or disagree)? Why? @ -I reviewed and agree with nursing and triage notes Were old charts reviewed (outside hosp., previous admission, EMS record, old EKG, old radiological studies, urgent care reports/EKG's, skilled nursing records)? Report findings @ -No old charts were reviewed Differential Diagnosis (chest pain, altered mental status, abdominal pain women, abdominal pain men, vaginal bleeding, weakness, fever, dyspnea, syncope, headache, dizziness, GI bleed, back pain, seizure, CVA, palpatations, mental health, musculoskeletal)? @ -Differential Abdominal Pain Women: Appendicitis, Cholecystitis, diverticulosis, ischemic bowel, pancreatitis, hepatitis, UTI, gastroenteritis, AAA, incarcerated hernia, bowel obstruction, constipation, inflammatory bowel, hepatitis, peptic ulcer disease, splenic infarction, perforated viscus, vulvitis, ovarian torsion, PID, kidney stone, placenta abruption, this is not meant to be an all-inclusive list EKG interpreted by me (3pts min.). @ -None done X-rays interpreted by me (1pt min.). @ -Chest x-ray reveals no obvious acute cardiopulmonary process CT interpreted by me (1pt min.). @ -CT abdomen pelvis reveals enteritis but no other obvious acute intra- abdominal process. U/S interpreted by me (1pt. min.). @ -None done What testing was considered but not performed or refused? (CT, X-rays, U/S, labs)? Why? @ -None What meds were considered but not given or refused? Why? @ -None Did you discuss the management of the patient with other professionals (professionals i.e. , PA, ASSISTANT LIBRARIAN, lab, RT, psych nurse, social staff worker, assistant professor surgical technology, teacher, traffic officer, case assembler)? Give summary @ -I spoke with the admitting provider, [facility]ela who accepted the admission. Was smoking cessation discussed for >3mins.? @ -No Was critical care preformed (if so, how long)? @ -No Were there social determinants of health that impacted care today? How? ( Homelessness, low income, unemployed, alcoholism, drug addiction, transportation, low edu. Level, literacy, decrease access to med. care, prison, rehab)? @ -No Was there de-escalation of care discussed even if they declined (Discuss DNR or withdrawal of care, Hospice)? DNR status @ -No What co-morbidities impacted this encounter? (DM, HTN, Smoking, COPD, CAD, Cancer, CVA, ARF, Chemo, Hep., AIDS, mental health diagnosis, sleep apnea, morbid obesity)? @ -None Was patient admitted / discharged? Hospital course, mention meds given and route, prescriptions, significant lab abnormalities, going to OR and other pertinent info. @ -Patient presents with abdominal pain, constipation. Patient also has a low- grade fever. She will be given Tylenol Motrin as well as IV fluids, Zofran. Vital signs otherwise within acceptable limits. Will obtain abdominal workup. Patient was in agreement this plan. Patient's laboratory studies returned remarkable for leukocytosis of 18.6 which could be secondary to patient's recent course of prednisone as well as dehydration. She has been on prednisone for the last 2 to 3 days. Patient has an elevated lactic acid at 3.0 likely secondary to dehydration. Remainder the labs unremarkable. Cepheid is pending. Chest x-ray unremarkable. CT abdomen pelvis reveals enteritis but no other obvious acute intra-abdominal process. I discussed the results with the patient. She is still having belly pain. With the elevated lactic acid as well as leukocytosis we will admit the patient and continue monitoring with IV fluid hydration, symptomatic treatment analgesia medications. Surgery will be consulted due to the intractable abdominal pain with enteritis. She was in agreement this plan. Patient admitted observation. I spoke with the admitting provider, [facility] who accepted the admission. Undiagnosed new problem with uncertain prognosis? @ -No Drug Therapy requiring intensive monitoring for toxicity (Heparin, Nitro, Insulin, Cardizem)? @ -No Were any procedures done? @ -No Diagnosis/symptom? @ -Intractable abdominal pain, enteritis, dehydration Acute, or Chronic, or Acute on Chronic? @ -Acute Uncomplicated (without systemic symptoms) or Complicated (systemic symptoms)? @ -Complicated Side effects of treatment? @ -None Exacerbation, Progression, or Severe Exacerbation] @ -No Poses a threat to life or bodily function? @ -Possibly, yes - Lab Data Result diagrams: 06/16/24 23:24 06/16/24 23:24 Lab Results 06/16/24 06/16/24 06/16/24 Range/Units 23:24 23:24 23:24 WBC 18.6 H (3.8-10.6) k/uL RBC 4.95 (3.80-5.40) m/uL Hgb 14.8 (11.4-16.0) gm/dL Hct 43.0 (34.0-46.0) % MCV 86.8 (80.0-100.0) fL MCH 29.9 (25.0-35.0) pg MCHC 34.4 (31.0-37.0) g/dL RDW 12.9 (11.5-15.5) % Plt Count 335 (150-450) k/uL MPV 7.3 Neutrophils % 85 % Lymphocytes % 10 % Monocytes % 3 % Eosinophils % 1 % Basophils % 0 % Neutrophils # 15.8 H (1.3-7.7) k/uL Lymphocytes # 1.8 (1.0-4.8) k/uL Monocytes # 0.6 (0-1.0) k/uL Eosinophils # 0.2 (0-0.7) k/uL Basophils # 0.0 (0-0.2) k/uL PT 10.3 (10.0-12.5) sec INR 0.9 (<1.2) APTT 24.2 (22.0-30.0) sec Sodium 137 (137-145) mmol/L Potassium 3.9 (3.5-5.1) mmol/L Chloride 98 (98-107) mmol/L Carbon Dioxide 25 (22-30) mmol/L Anion Gap 14 mmol/L BUN 9 (7-17) mg/dL Creatinine 0.68 (0.52-1.04) mg/dL Est GFR (CKD-EPI)AfAm >90 (>60 ml/min/1.73 sqM) Est GFR (CKD-EPI)NonAf >90 (>60 ml/min/1.73 sqM) Glucose 113 H (74-99) mg/dL Plasma Lactic Acid Godwin (0.7-2.0) mmol/L Calcium 9.2 (8.4-10.2) mg/dL Total Bilirubin 0.5 (0.2-1.3) mg/dL AST 33 (14-36) U/L ALT 23 (4-34) U/L Alkaline Phosphatase 83 (38-126) U/L Total Protein 7.6 (6.3-8.2) g/dL Albumin 4.5 (3.5-5.0) g/dL Amylase 58 (30-110) U/L Lipase 73 (23-300) U/L HCG, Qual Not Detected Urine Color Urine Appearance (Clear) Urine pH (5.0-8.0) Ur Specific [place] (1.001-1.035) Urine Protein (Negative) Urine Glucose (UA) (Negative) Urine Ketones (Negative) Urine Blood (Negative) Urine Nitrite (Negative) Urine Bilirubin (Negative) Urine Urobilinogen (<2.0) mg/dL Ur Leukocyte Esterase (Negative) 06/16/24 06/17/24 Range/Units 23:24 01:06 WBC (3.8-10.6) k/uL RBC (3.80-5.40) m/uL Hgb (11.4-16.0) gm/dL Hct (34.0-46.0) % MCV (80.0-100.0) fL MCH (25.0-35.0) pg MCHC (31.0-37.0) g/dL RDW (11.5-15.5) % Plt Count (150-450) k/uL MPV Neutrophils % % Lymphocytes % % Monocytes % % Eosinophils % % Basophils % % Neutrophils # (1.3-7.7) k/uL Lymphocytes # (1.0-4.8) k/uL Monocytes # (0-1.0) k/uL Eosinophils # (0-0.7) k/uL Basophils # (0-0.2) k/uL PT (10.0-12.5) sec INR (<1.2) APTT (22.0-30.0) sec Sodium (137-145) mmol/L Potassium (3.5-5.1) mmol/L Chloride (98-107) mmol/L Carbon Dioxide (22-30) mmol/L Anion Gap mmol/L BUN (7-17) mg/dL Creatinine (0.52-1.04) mg/dL Est GFR (CKD-EPI)AfAm (>60 ml/min/1.73 sqM) Est GFR (CKD-EPI)NonAf (>60 ml/min/1.73 sqM) Glucose (74-99) mg/dL Plasma Lactic Acid Godwin 3.0 H* (0.7-2.0) mmol/L Calcium (8.4-10.2) mg/dL Total Bilirubin (0.2-1.3) mg/dL AST (14-36) U/L ALT (4-34) U/L Alkaline Phosphatase (38-126) U/L Total Protein (6.3-8.2) g/dL Albumin (3.5-5.0) g/dL Amylase (30-110) U/L Lipase (23-300) U/L HCG, Qual Urine Color Colorless Urine Appearance Clear (Clear) Urine pH 5.5 (5.0-8.0) Ur Specific [place] 1.037 H (1.001-1.035) Urine Protein Negative (Negative) Urine Glucose (UA) Negative (Negative) Urine Ketones Negative (Negative) Urine Blood Negative (Negative) Urine Nitrite Negative (Negative) Urine Bilirubin Negative (Negative) Urine Urobilinogen <2.0 (<2.0) mg/dL Ur Leukocyte Esterase Negative (Negative) Disposition Clinical Impression: Intractable abdominal pain, Enteritis, Dehydration Disposition: ADMITTED IP TO THIS [facility] Condition: Stable Referrals: Matias Blackburn [Primary Care Provider] - 1-2 days Time of Disposition: 02:00
[2024-06-16 23:52] LABS: INR 0.9 (<1.2); Partial Thromboplastin Time 24.2 sec (22.0-30.0); Prothrombin Time 10.3 sec (10.0-12.5)
[2024-06-16] MEDS: SODIUM CHLORIDE 0.9% 1,000 ML IV STA (23:52)
[2024-06-16] MEDS: ONDANSETRON 4 MG/2 ML VIAL IVP STA (23:53)
[2024-06-16] MEDS: PANTOPRAZOLE 40 MG/10 ML VIAL IVP STA (23:55)
[2024-06-16] MEDS: IBUPROFEN 800 MG TAB PO STA (23:56)
[2024-06-16] MEDS: ACETAMINOPHEN TAB 500 MG TAB PO STA (23:57)
[2024-06-17 00:03] LABS: ALT 23 U/L (4-34); AST 33 U/L (14-36); African American GFR (CKD) >90 (>60 ml/min/1.73 sqM); Albumin 4.5 g/dL (3.5-5.0); Alkaline Phosphatase 83 U/L (38-126); Amylase 58 U/L (30-110); Anion Gap 14 mmol/L; Blood Urea Nitrogen 9 mg/dL (7-17); Calcium 9.2 mg/dL (8.4-10.2); Carbon Dioxide 25 mmol/L (22-30); Chloride 98 mmol/L (98-107); Glucose 113 mg/dL (74-99); Lipase 73 U/L (23-300); Non-African American GFR(CKD) >90 (>60 ml/min/1.73 sqM); Potassium 3.9 mmol/L (3.5-5.1); Sodium 137 mmol/L (137-145); Total Bilirubin 0.5 mg/dL (0.2-1.3); Total Protein 7.6 g/dL (6.3-8.2)
[2024-06-17 00:53] LABS: HCG,Qualitative Serum Not Detected
--- NOTE | 2024-06-17 00:56 | XR ---
EXAM: XR Chest, 2 Views CLINICAL HISTORY: ITS.REASON XR Reason: abdominal pain TECHNIQUE: Frontal and lateral views of the chest. COMPARISON: No relevant prior studies available. FINDINGS: Lungs: Unremarkable. No consolidation. Pleural space: Unremarkable. No pneumothorax. Heart: Unremarkable. No cardiomegaly. Mediastinum: Unremarkable. Normal mediastinal contour. Bones/joints: Unremarkable. No acute fracture. IMPRESSION: No consolidation.
[2024-06-17] MEDS: SODIUM CHLORIDE 0.9% 1,000 ML IV STA ×2 (01:02→01:33)
--- NOTE | 2024-06-17 01:31 | CT ---
EXAM: CT Abdomen and Pelvis With Intravenous Contrast CLINICAL HISTORY: ITS.REASON CT Reason: abdominal pain. mid abd. constipation TECHNIQUE: Axial computed tomography images of the abdomen and pelvis with intravenous contrast. CTDI is 22.1 mGy and DLP is 1130.5 mGy-cm. This CT exam was performed using one or more of the following dose reduction techniques: automated exposure control, adjustment of the mA and/or kV according to patient size, and/or use of iterative reconstruction technique. COMPARISON: No relevant prior studies available. FINDINGS: Lung bases: Unremarkable. No mass. No consolidation. ABDOMEN: Liver: Unremarkable. No mass. Gallbladder and bile ducts: Unremarkable. No calcified stones. No ductal dilation. Pancreas: Unremarkable. No mass. No ductal dilation. Spleen: Unremarkable. No splenomegaly. Adrenals: Unremarkable. No mass. Kidneys and ureters: Unremarkable. No solid mass. No hydronephrosis. Stomach and bowel: Wall thickening of small bowel, consistent with enteritis. Moderate edema/leukemoid in between the uterus and urinary bladder which is presumed to be from the patient's enteritis. No obstruction. PELVIS: Appendix: No findings to suggest acute appendicitis. Bladder: Unremarkable. No mass. Reproductive: Low-attenuation uterine fibroid measures 4.9 x 5.5 cm. ABDOMEN and PELVIS: Intraperitoneal space: Unremarkable. No free air. No significant fluid collection. Bones/joints: No acute fracture. No dislocation. Soft tissues: Unremarkable. Vasculature: Unremarkable. No abdominal aortic aneurysm. Lymph nodes: Unremarkable. No enlarged lymph nodes. IMPRESSION: 1. Wall thickening of small bowel, consistent with enteritis. 2. Moderate edema/leukemoid in between the uterus and urinary bladder which is presumed to be from the patient's enteritis. 3. Low-attenuation uterine fibroid measures 4.9 x 5.5 cm.
[2024-06-17 01:41] LABS: Appearance,Urine Clear (Clear); Bilirubin,Urine Negative (Negative); Blood,Urine Negative (Negative); Color,Urine Colorless; Glucose,Urine (UA) Negative (Negative); Ketones,Urine Negative (Negative); Leukocyte Esterase,Urine Negative (Negative); Nitrite,Urine Negative (Negative); PH, Urine 5.5 (5.0-8.0); Protein,Urine Negative (Negative); Specific Gravity,Urine 1.037 (1.001-1.035); Urobilinogen,Urine <2.0 mg/dL (<2.0)
[2024-06-17] MEDS ORDERED: MORPHINE SULFATE 2 MG/ML SYRINGE IVP PRN (01:42)
[2024-06-17] MEDS ORDERED: ACETAMINOPHEN TAB 325 MG TAB PO PRN (02:03)
[2024-06-17] MEDS ORDERED: ONDANSETRON 4 MG/2 ML VIAL IVP PRN (02:03)
[2024-06-17] MEDS ORDERED: NALOXONE 0.4 MG/ML 1 ML VIAL IV PRN (02:03)
[2024-06-17] MEDS: MORPHINE SULFATE 2 MG/ML SYRINGE IVP STA (02:52)
[2024-06-17 03:52] LABS: Influenza A Detected (Not Detectd); Influenza B Not Detected (Not Detectd); RSV Not Detected (Not Detectd)
[2024-06-17 06:31] VITALS: TEMP 98.6
[2024-06-17 07:32] LABS: Basophils % (A) 0 %; Eosinophils % (A) 0 %; HCT 36.9 % (34.0-46.0); HGB 12.2 gm/dL (11.4-16.0); Lymphocytes # (A) 1.6 k/uL (1.0-4.8); Lymphocytes % (A) 11 %; MCH 28.9 pg (25.0-35.0); MCV 87.6 fL (80.0-100.0); Monocytes # (A) 0.8 k/uL (0-1.0); Monocytes % (A) 5 %; Neutrophils # (A) 11.7 k/uL (1.3-7.7); Neutrophils % (A) 82 %; Platelet Count 259 k/uL (150-450); RBC 4.21 m/uL (3.80-5.40); RDW 12.9 % (11.5-15.5); WBC 14.3 k/uL (3.8-10.6)
[2024-06-17 07:47] LABS: ALT 16 U/L (4-34); AST 22 U/L (14-36); African American GFR (CKD) >90 (>60 ml/min/1.73 sqM); Albumin 3.1 g/dL (3.5-5.0); Albumin/Globulin Ratio 1.2; Alkaline Phosphatase 57 U/L (38-126); Anion Gap 7 mmol/L; Blood Urea Nitrogen 7 mg/dL (7-17); Calcium 7.9 mg/dL (8.4-10.2); Carbon Dioxide 27 mmol/L (22-30); Chloride 105 mmol/L (98-107); Globulin 2.5 g/dL; Glucose 94 mg/dL (74-99); Magnesium 1.6 mg/dL (1.6-2.3); Non-African American GFR(CKD) >90 (>60 ml/min/1.73 sqM); Potassium 3.9 mmol/L (3.5-5.1); Sodium 139 mmol/L (137-145); Total Bilirubin 0.3 mg/dL (0.2-1.3); Total Protein 5.6 g/dL (6.3-8.2)
--- NOTE | 2024-06-17 10:19 | P.GSCN ---
History of Present Illness Consult date: 06/17/24 Reason for Consult: Abdominal pain History of present illness: 44-year-old female presents to the hospital with complaints of abdominal pain. Patient has history of chronic constipation stating she only stools about twice per month. Starting last Wednesday she began experiencing some vague abdominal pain and bloating sensation. She took laxatives and did have a bowel movement last Wednesday. Stayed on a liquid diet. Took additional stool softeners with some liquid stools on . Starting on Wednesday patient developed a cough. Her fitobi's father has influenza she believes. She was diagnosed with bronchitis and started on doxycycline and prednisone. Patient says over the last few days she has had increasing abdominal cramps. Pain seem to start more on the right side but now is across the lower abdomen. No surgery previously other than . Feels a bit better this morning. No nausea or vomiting. Does have a headache. Was scheduled for an elective colonoscopy in August. She has not had 1 previously. Denies rectal bleeding or melena. No mucus. Underwent CAT scan of the abdomen pelvis showing vague inflammatory changes involving the small bowel loops in the pelvis. Enteritis described by radiology. Etiology unclear. Appendix appears normal. No evidence of obstruction. No significant stool burden. Patient's white blood cell count was 18 and her lactic acid was 3.0 on arrival. Today the lactic acid is normal and the white blood cell count improved at 14. She had a Tmax of 100.2 on arrival she has since then been afebrile. Patient found to be influenza A positive. Review of Systems The patient denies any acute changes in vision or hearing, no dysphagia or odynophagia, no chest pain or shortness of breath, no dysuria or hematuria, no headache, no runny nose, no rectal bleeding or melena, no unexplained weight loss Past Medical History Past Medical History: No Reported History Additional Past Medical History / Comment(s): First was a for twins, pt was hospitalized for 6 days due to "fluid around heart or lungs" History of Any Multi-Drug Resistant Organisms: None Reported Past Surgical History: Section, Uterine Ablation Past Anesthesia/Blood Transfusion Reactions: No Reported Reaction Past Psychological History: No Psychological Hx Reported Smoking Status: Never smoker Past Alcohol Use History: Occasional Past Drug Use History: None Reported - Past Family History Father Family Medical History: Cancer Additional Family Medical History / Comment(s): colon cancer Sister(s) Additional Family Medical History / Comment(s): heart mur mur Mother Family Medical History: Cancer Additional Family Medical History / Comment(s): breast cancer Medications and Allergies Home Medications Medication Instructions Recorded Confirmed Type Ibuprofen [Motrin] 600 mg PO Q6HR PRN #20 tab 12/15/17 12/29/18 Rx Cyclobenzaprine [Flexeril] 10 mg PO TID PRN 3 Days #9 tab 10/29/20 Rx Allergies Allergy/AdvReac Type Severity Reaction Status Date / Time naproxen [From Aleve] Allergy Rash/Hives Verified 06/16/24 23:13 Surgical - Exam Vital Signs Temp Pulse Resp BP Pulse Ox 100.2 F H 72 18 107/68 98 06/16/24 23:09 06/16/24 23:09 06/16/24 23:09 06/16/24 23:09 06/16/24 23:09 Physical exam: General: Well-developed, well-nourished HEENT: Normocephalic, sclerae nonicteric Abdomen: Mild to moderate diffuse tenderness more in the lower abdomen, no rebound or guarding, nondistended Extremities: No edema Neuro: Alert and oriented Results - Labs 06/17/24 06:50 06/17/24 06:50 Abnormal Lab Results - Last 24 Hours (Table) 06/16/24 06/16/24 06/16/24 Range/Units 23:24 23:24 23:24 WBC 18.6 H (3.8-10.6) k/uL Neutrophils # 15.8 H (1.3-7.7) k/uL Glucose 113 H (74-99) mg/dL Plasma Lactic Acid Godwin 3.0 H* (0.7-2.0) mmol/L Calcium (8.4-10.2) mg/dL Total Protein (6.3-8.2) g/dL Albumin (3.5-5.0) g/dL Ur Specific [place] (1.001-1.035) Influenza Type A (PCR) (Not Detectd) 06/17/24 06/17/24 06/17/24 Range/Units 01:06 02:50 06:50 WBC 14.3 H (3.8-10.6) k/uL Neutrophils # 11.7 H (1.3-7.7) k/uL Glucose (74-99) mg/dL Plasma Lactic Acid Godwin (0.7-2.0) mmol/L Calcium (8.4-10.2) mg/dL Total Protein (6.3-8.2) g/dL Albumin (3.5-5.0) g/dL Ur Specific [place] 1.037 H (1.001-1.035) Influenza Type A (PCR) Detected A (Not Detectd) 06/17/24 Range/Units 06:50 WBC (3.8-10.6) k/uL Neutrophils # (1.3-7.7) k/uL Glucose (74-99) mg/dL Plasma Lactic Acid [place] (0.7-2.0) mmol/L Calcium 7.9 L (8.4-10.2) mg/dL Total Protein 5.6 L (6.3-8.2) g/dL Albumin 3.1 L (3.5-5.0) g/dL Ur Specific [place] (1.001-1.035) Influenza Type A (PCR) (Not Detectd) Diabetes panel 06/16/24 06/17/24 Range/Units 23:24 06:50 Sodium 137 139 (137-145) mmol/L Potassium 3.9 3.9 (3.5-5.1) mmol/L Chloride 98 105 (98-107) mmol/L Carbon Dioxide 25 27 (22-30) mmol/L BUN 9 7 (7-17) mg/dL Creatinine 0.68 0.76 (0.52-1.04) mg/dL Glucose 113 H 94 (74-99) mg/dL Calcium 9.2 7.9 L (8.4-10.2) mg/dL AST 33 22 (14-36) U/L ALT 23 16 (4-34) U/L Alkaline Phosphatase 83 57 (38-126) U/L Total Protein 7.6 5.6 L (6.3-8.2) g/dL Albumin 4.5 3.1 L (3.5-5.0) g/dL Calcium panel 06/16/24 06/17/24 Range/Units 23:24 06:50 Calcium 9.2 7.9 L (8.4-10.2) mg/dL Albumin 4.5 3.1 L (3.5-5.0) g/dL Pituitary panel 06/16/24 06/17/24 Range/Units 23:24 06:50 Sodium 137 139 (137-145) mmol/L Potassium 3.9 3.9 (3.5-5.1) mmol/L Chloride 98 105 (98-107) mmol/L Carbon Dioxide 25 27 (22-30) mmol/L BUN 9 7 (7-17) mg/dL Creatinine 0.68 0.76 (0.52-1.04) mg/dL Glucose 113 H 94 (74-99) mg/dL Calcium 9.2 7.9 L (8.4-10.2) mg/dL Adrenal panel 06/16/24 06/17/24 Range/Units 23:24 06:50 Sodium 137 139 (137-145) mmol/L Potassium 3.9 3.9 (3.5-5.1) mmol/L Chloride 98 105 (98-107) mmol/L Carbon Dioxide 25 27 (22-30) mmol/L BUN 9 7 (7-17) mg/dL Creatinine 0.68 0.76 (0.52-1.04) mg/dL Glucose 113 H 94 (74-99) mg/dL Calcium 9.2 7.9 L (8.4-10.2) mg/dL Total Bilirubin 0.5 0.3 (0.2-1.3) mg/dL AST 33 22 (14-36) U/L ALT 23 16 (4-34) U/L Alkaline Phosphatase 83 57 (38-126) U/L Total Protein 7.6 5.6 L (6.3-8.2) g/dL Albumin 4.5 3.1 L (3.5-5.0) g/dL Assessment and Plan (1) Enteritis Narrative/Plan: 44-year-old female with abdominal pain and enteritis. Was found to be influenza A positive as well. Etiology unclear but likely related to infectious enteritis. Continue clear liquid diet. Begin antibiotics for possible infectious enteritis. Certainly could be viral given her findings of influenza A. Will repeat abdominal x-rays tomorrow. Repeat labs tomorrow. Will follow. Current Visit: Yes Status: Acute Code(s): K52.9 - NONINFECTIVE GASTROENTERITIS AND COLITIS, UNSPECIFIED SNOMED Code(s): 00155813
[2024-06-17 14:00] VITALS: BP 107/70; PULSE 92; RESP 16
--- NOTE | 2024-06-17 14:25 | P.DS ---
Providers Date of admission: 06/17/24 02:03 Attending physician: Brandon Nova Consults: 06/17/24 02:03 Consult Physician Routine Consulting Provider: Gerry Alexander Consult Reason/Comments: intractable abd pain, enteritis, dehydration Do you want consulting provider notified?: Yes Primary care physician: Matias Garcia [facility] Course: 44 yrs Old female came in with complaints of fever abdominal pain and diarrhea patient is a right lower quadrant abdominal pain which is crampy in nature patient is found to have enteritis on CT scan scan patient also found to have influenza. Patient is feeling little bit better. Afebrile but still tired and weak. Patient was having nausea did not have any vomiting. Patient was on steroids and doxycycline for bronchitis. Patient was complaining of cough with sputum collection REVIEW OF SYSTEMS: All other systems are negative except those mentioned in the HPI PHYSICAL EXAMINATION: GENERAL: The patient is alert and oriented x3, not in any acute distress. Well developed, well nourished. HEENT: Pupils are round and equally reacting to light. EOMI. No scleral icterus. No conjunctival pallor. Normocephalic, atraumatic. No pharyngeal erythema. No thyromegaly. CARDIOVASCULAR: S1 and S2 present. No murmurs, rubs, or gallops. PULMONARY: Chest is clear to auscultation, no wheezing or crackles. ABDOMEN: Soft, nontender, nondistended, normoactive bowel sounds. No palpable organomegaly. MUSCULOSKELETAL: No joint swelling or deformity. EXTREMITIES: No cyanosis, clubbing, or pedal edema. NEUROLOGICAL: Gross neurological examination did not reveal any focal deficits. SKIN: No rashes. Assessment and plan -Influenza infection patient will be discharged on Tamiflu supportive care -Viral gastroenteritis supportive care again patient will be given [place] upon discharge for 3 days as needed for pain -Ruled out C. difficile Patient will be discharged today Patient Condition at Discharge: Stable Plan - Discharge Summary Discharge Rx Participant: No New Discharge Prescriptions: New Famotidine [Pepcid] 20 mg PO BID #20 tablet Oseltamivir [Tamiflu] 75 mg PO Q12HR #10 cap No Action predniSONE [Deltasone] 20 mg PO BID Doxycycline Hyclate 100 mg PO BID Discharge Medication List Doxycycline Hyclate 100 mg PO BID 06/17/24 [History] Famotidine [Pepcid] 20 mg PO BID #20 tablet 06/17/24 [Rx] Oseltamivir [Tamiflu] 75 mg PO Q12HR #10 cap 06/17/24 [Rx] predniSONE [Deltasone] 20 mg PO BID 06/17/24 [History] Follow up Appointment(s)/Referral(s): Matias Blackburn [Primary Care Provider] - 3 Days Discharge Disposition: HOME SELF-CARE
--- NOTE | 2024-06-17 14:25 | P.HPIM ---
History of Present Illness 44 yrs Old female came in with complaints of fever abdominal pain and diarrhea patient is a right lower quadrant abdominal pain which is crampy in nature patient is found to have enteritis on CT scan scan patient also found to have influenza. Patient is feeling little bit better. Afebrile but still tired and weak. Patient was having nausea did not have any vomiting. Patient was on steroids and doxycycline for bronchitis. Patient was complaining of cough with sputum collection REVIEW OF SYSTEMS: All other systems are negative except those mentioned in the HPI PHYSICAL EXAMINATION: GENERAL: The patient is alert and oriented x3, not in any acute distress. Well developed, well nourished. HEENT: Pupils are round and equally reacting to light. EOMI. No scleral icterus. No conjunctival pallor. Normocephalic, atraumatic. No pharyngeal erythema. No thyromegaly. CARDIOVASCULAR: S1 and S2 present. No murmurs, rubs, or gallops. PULMONARY: Chest is clear to auscultation, no wheezing or crackles. ABDOMEN: Soft, nontender, nondistended, normoactive bowel sounds. No palpable organomegaly. MUSCULOSKELETAL: No joint swelling or deformity. EXTREMITIES: No cyanosis, clubbing, or pedal edema. NEUROLOGICAL: Gross neurological examination did not reveal any focal deficits. SKIN: No rashes. Assessment and plan -Influenza infection patient will be discharged on Tamiflu supportive care -Viral gastroenteritis supportive care again patient will be given [place] upon discharge for 3 days as needed for pain -Ruled out C. difficile Patient will be discharged today Past Medical History Past Medical History: No Reported History Additional Past Medical History / Comment(s): First was a for twins, pt was hospitalized for 6 days due to "fluid around heart or lungs" History of Any Multi-Drug Resistant Organisms: None Reported Past Surgical History: Section, Uterine Ablation Past Anesthesia/Blood Transfusion Reactions: No Reported Reaction Past Psychological History: No Psychological Hx Reported Smoking Status: Never smoker Past Alcohol Use History: Occasional Past Drug Use History: None Reported - Past Family History Father Family Medical History: Cancer Additional Family Medical History / Comment(s): colon cancer Sister(s) Additional Family Medical History / Comment(s): heart mur mur Mother Family Medical History: Cancer Additional Family Medical History / Comment(s): breast cancer Medications and Allergies Home Medications Medication Instructions Recorded Confirmed Type Doxycycline Hyclate 100 mg PO BID 06/17/24 06/17/24 History Famotidine [Pepcid] 20 mg PO BID #20 tablet 06/17/24 Rx Oseltamivir [Tamiflu] 75 mg PO Q12HR #10 cap 06/17/24 Rx predniSONE [Deltasone] 20 mg PO BID 06/17/24 06/17/24 History Allergies Allergy/AdvReac Type Severity Reaction Status Date / Time naproxen [From Aleve] Allergy Rash/Hives Verified 06/17/24 11:19 Physical Exam Vitals: Vital Signs Temp Pulse Pulse Resp BP BP Pulse Ox 06/17/24 13:59 98.6 F 92 16 107/70 98 06/17/24 06:30 98.6 F 79 17 106/59 96 06/17/24 04:10 98.3 F 82 18 99/64 97 06/17/24 02:00 87 18 100/63 96 06/17/24 01:00 99.8 F H 81 18 102/65 98 06/17/24 00:13 70 18 94/78 98 06/16/24 23:09 100.2 F H 72 18 107/68 98 Intake and Output 06/16/24 06/17/24 06/17/24 22:59 06:59 14:59 Intake Total 118 Balance 118 Intake: Oral 118 Other: # Voids 2 3 Weight 90.718 kg Results CBC & Chem 7: 06/17/24 06:50 06/17/24 06:50 Labs: Abnormal Lab Results - Last 24 Hours (Table) 06/16/24 06/16/24 06/16/24 Range/Units 23:24 23:24 23:24 WBC 18.6 H (3.8-10.6) k/uL Neutrophils # 15.8 H (1.3-7.7) k/uL Glucose 113 H (74-99) mg/dL Plasma Lactic Acid Godwin 3.0 H* (0.7-2.0) mmol/L Calcium (8.4-10.2) mg/dL Total Protein (6.3-8.2) g/dL Albumin (3.5-5.0) g/dL Ur Specific [place] (1.001-1.035) Influenza Type A (PCR) (Not Detectd) 0106/17/24 06/17/24 Range/Units 01:06 02:50 06:50 WBC 14.3 H (3.8-10.6) k/uL Neutrophils # 11.7 H (1.3-7.7) k/uL Glucose (74-99) mg/dL Plasma Lactic Acid Godwin (0.7-2.0) mmol/L Calcium (8.4-10.2) mg/dL Total Protein (6.3-8.2) g/dL Albumin (3.5-5.0) g/dL Ur Specific [place] 1.037 H (1.001-1.035) Influenza Type A (PCR) Detected A (Not Detectd) 06/17/24 Range/Units 06:50 WBC (3.8-10.6) k/uL Neutrophils # (1.3-7.7) k/uL Glucose (74-99) mg/dL Plasma Lactic Acid Godwin (0.7-2.0) mmol/L Calcium 7.9 L (8.4-10.2) mg/dL Total Protein 5.6 L (6.3-8.2) g/dL Albumin 3.1 L (3.5-5.0) g/dL Ur Specific [place] (1.001-1.035) Influenza Type A (PCR) (Not Detectd) Thrombosis Risk Factor Assmnt - Choose All That Apply Any of the Below Risk Factors Present?: Yes Each Factor Represents 1 point: Age 41-60 years, Obesity (BMI >25) Other Risk Factors: No Other congenital or acquired thrombophilia - If yes, enter type in comment: No Thrombosis Risk Factor Assessment Total Risk Factor Score: 2 Thrombosis Risk Factor Assessment Level: Low Risk
[2024-06-17] MEDS ORDERED: metroNIDAZOLE-NS PMX 500 MG in SALINE 1 100ML.BAG IVPB SCH (16:00)
[2024-06-17] MEDS ORDERED: PIPERACILLIN-TAZOBACTAM 3.375 GM in SODIUM CHLORIDE 0.9% 100 ML IVPB SCH (16:00)
== END 2024-06-17 15:17 | disposition home or self-care (01) ==
LOC: EC 23:02 → 6NMEDSUR 06-17 02:03
PROVIDERS: ADMIT Hospitalist; ATTEND Hospitalist
DX: J10.2 Influenza due to other identified influenza virus with gastrointestinal manifestations (principal); J10.1 Influenza due to other identified influenza virus with other respiratory manifestations; J40 Bronchitis, not specified as acute or chronic; E86.0 Dehydration; K59.09 Other constipation; Z88.6 Allergy status to analgesic agent; E66.9 Obesity, unspecified; Z68.32 Body mass index [BMI] 32.0-32.9, adult; Z98.891 History of uterine scar from previous surgery; Z98.890 Other specified postprocedural states
CPT/HCPCS: 96361; 96374; 96375; 99285; 36415; 80053 ×2; 82150; 83605 ×2; 83690; 83735; 85025 ×2; 85610; 85730; 81003; 84703; 87324; 87636; 71046; 74177; G0378; J2405; Q9967; J2470

== ENCOUNTER 2024-08-18 16:49 | Inpatient (IN) | payer OTHER ==
--- NOTE | 2024-08-18 17:38 | ED ---
Abdominal Pain HPI - General Source: patient, RN notes reviewed Mode of arrival: ambulatory Limitations: no limitations <Eloy Bella - Last Filed: 08/18/24 17:37> <Sergey Shin - Last Filed: 08/18/24 22:00> - General Chief Complaint: Abdominal Pain Stated Complaint: abd pain Time Seen by Provider: 08/18/24 17:05 - History of Present Illness Initial Comments: Quick note: This is a 44-year-old female presenting with s/o right lower quadrant abdominal pain (03/16) since last night. Endorses associated bloating and decreased appetite. Denies fever, chills, chest pain, dyspnea, nausea/vomiting, diarrhea, constipation, dizziness, urinary symptoms, hematuria, vaginal bleeding/discharge. (Eloy Bella) - Related Data Home Medications Medication Instructions Recorded Confirmed Doxycycline Hyclate 100 mg PO BID 06/17/24 06/17/24 predniSONE [Deltasone] 20 mg PO BID 06/17/24 06/17/24 Previous Rx's Medication Instructions Recorded Famotidine [Pepcid] 20 mg PO BID #20 tablet 06/17/24 Oseltamivir [Tamiflu] 75 mg PO Q12HR #10 cap 06/17/24 Allergies Allergy/AdvReac Type Severity Reaction Status Date / Time naproxen [From Aleve] Allergy Rash/Hives Verified 08/18/24 17:31 Review of Systems ROS Other: All systems not noted in ROS Statement are negative. <Eloy Bella - Last Filed: 08/18/24 17:37> ROS Other: All systems not noted in ROS Statement are negative. <Sergey Shin - Last Filed: 08/18/24 22:00> ROS Statement: Those systems with pertinent positive or pertinent negative responses have been documented in the HPI. Past Medical History Past Medical History: No Reported History Additional Past Medical History / Comment(s): First was a for twins, pt was hospitalized for 6 days due to "fluid around heart or lungs" History of Any Multi-Drug Resistant Organisms: None Reported Past Surgical History: Section, Uterine Ablation Past Anesthesia/Blood Transfusion Reactions: No Reported Reaction Past Psychological History: No Psychological Hx Reported Smoking Status: Never smoker Past Alcohol Use History: Occasional Past Drug Use History: None Reported - Past Family History Father Family Medical History: Cancer Additional Family Medical History / Comment(s): colon cancer Sister(s) Additional Family Medical History / Comment(s): heart mur mur Mother Family Medical History: Cancer Additional Family Medical History / Comment(s): breast cancer <Eloy Bella - Last Filed: 08/18/24 17:37> General Exam Limitations: no limitations <Eloy Bella - Last Filed: 08/18/24 17:37> - General Exam Comments Initial Comments: Visual Physical Exam Vital signs reviewed General: Well-appearing, nontoxic, no acute distress. Head: Normocephalic, atraumatic Eyes: PERRLA, EOMI ENT: Airway patent Chest: Nonlabored breathing Skin: No visual rash, normal skin tone Neuro: Alert and oriented 3 Musculoskeletal: No gross abnormalities (Eloy Bella) Course Vital Signs 08/18/24 17:23 Temperature 98.3 F Pulse Rate 88 Respiratory 18 Rate Blood Pressure 116/77 O2 Sat by Pulse 100 Oximetry Medical Decision Making <Eloy Bella - Last Filed: 08/18/24 17:37> - Lab Data Result diagrams: 08/18/24 18:09 08/18/24 18:09 <Sergey Shin - Last Filed: 08/18/24 22:00> - Medical Decision Making I completed the quick note portion of this chart signed GURINDER Bruce (Eloy Bella) Was pt. sent in by a medical professional or institution (SHELLY Mayer, DESTINATION COORDINATOR, urgent care, hospital, or long term...) When possible be specific @ -No Did you speak to anyone other than the patient for history (EMS, parent, family, police, friend...)? What history was obtained from this source @ -No Did you review nursing and triage notes (agree or disagree)? Why? @ -I reviewed and agree with nursing and triage notes Were old charts reviewed (outside hosp., previous admission, EMS record, old EKG, old radiological studies, urgent care reports/EKG's, long term records)? Report findings @ -No old charts were reviewed Differential Abdominal Pain Women: Appendicitis, Cholecystitis, diverticulosis, ischemic bowel, pancreatitis, hepatitis, UTI, gastroenteritis, AAA, incarcerated hernia, bowel obstruction, constipation, inflammatory bowel, hepatitis, peptic ulcer disease, splenic infarction, perforated viscus, vulvitis, ovarian torsion, PID, kidney stone, placenta abruption, this is not meant to be an all-inclusive list EKG interpreted by me (3pts min.). @ -As above X-rays interpreted by me (1pt min.). @ -None done CT interpreted by me (1pt min.). @CT showing inflammatory change in the right lower quadrant with inflammation in the fallopian tube and the adjacent structures concerning for tubo-ovarian abscess, appendix is normal U/S interpreted by me (1pt. min.). @Ultrasound of the pelvis showing concern for tubo-ovarian abscess What testing was considered but not performed or refused? (CT, X-rays, U/S, labs)? Why? @ -None What meds were considered but not given or refused? Why? @ -None Did you discuss the management of the patient with other professionals (professionals i.e. , PA, DESTINATION COORDINATOR, lab, RT, psych nurse, social welfare clerk, dye stand loader, teacher, correctional security officer, disease case manager)? Give summary @ -Case discussed with Dr. Mae, will evaluate the patient in consultation. Patient admitted to [facility], case discussed with Ana Laura. Infectious disease placed on consult. Was smoking cessation discussed for >3mins.? @ -No Was critical care preformed (if so, how long)? @ -No Were there social determinants of health that impacted care today? How? (Homelessness, low income, unemployed, alcoholism, drug addiction, transportation, low edu. Level, literacy, decrease access to med. care, skilled nursing, rehab)? @ -No Was there de-escalation of care discussed even if they declined (Discuss DNR or withdrawal of care, Hospice)? DNR status @ -No What co-morbidities impacted this encounter? (DM, HTN, Smoking, COPD, CAD, Cancer, CVA, ARF, Chemo, Hep., AIDS, mental health diagnosis, sleep apnea, morbid obesity)? @ -None Was patient admitted / discharged? Hospital course, mention meds given and route, prescriptions, significant lab abnormalities, going to OR and other p ertinent info. @ -44-year-old female with right lower quadrant abdominal pain and pelvic pain. Patient has an elevated white blood cell count 18.6 which is predominantly neutrophils. CT concerning for tubo-ovarian abscess, ultrasound also suggestive of a tubo-ovarian abscess. Patient started on ceftriaxone and Flagyl. Patient will be admitted with consults to gynecology and infectious disease. Undiagnosed new problem with uncertain prognosis? @ -No Drug Therapy requiring intensive monitoring for toxicity (Heparin, Nitro, Insulin, Cardizem)? @ -No Were any procedures done? @ -No Diagnosis/symptom? @ -Abdominal pain, leukocytosis, tubo-ovarian abscess Acute, or Chronic, or Acute on Chronic? @Acute Uncomplicated (without systemic symptoms) or Complicated (systemic symptoms)? @ -[Complicated Side effects of treatment? @ -No Exacerbation, Progression, or Severe Exacerbation? @ -No Poses a threat to life or bodily function? How? (Chest pain, [place], [place], pneumonia, PE, COPD, DKA, ARF, appy, cholecystitis, CVA, Diverticulitis, Homicidal, Suicidal, threat to staff... and all critical care pts) @ -Yes, sepsis (Sergey Shin) - Lab Data Lab Results 08/18/24 08/18/24 08/18/24 Range/Units 18:09 18:09 18:09 WBC 18.6 H (3.8-10.6) k/uL RBC 5.22 (3.80-5.40) m/uL Hgb 15.0 (11.4-16.0) gm/dL Hct 46.0 (34.0-46.0) % MCV 88.2 (80.0-100.0) fL MCH 28.7 (25.0-35.0) pg MCHC 32.6 (31.0-37.0) g/dL RDW 13.7 (11.5-15.5) % Plt Count 353 (150-450) k/uL MPV 7.9 Neutrophils % 78 % Lymphocytes % 15 % Monocytes % 5 % Eosinophils % 2 % Basophils % 0 % Neutrophils # 14.5 H (1.3-7.7) k/uL Lymphocytes # 2.7 (1.0-4.8) k/uL Monocytes # 0.9 (0-1.0) k/uL Eosinophils # 0.3 (0-0.7) k/uL Basophils # 0.0 (0-0.2) k/uL Sodium (137-145) mmol/L Potassium (3.5-5.1) mmol/L Chloride (98-107) mmol/L Carbon Dioxide (22-30) mmol/L Anion Gap mmol/L BUN (7-17) mg/dL Creatinine (0.52-1.04) mg/dL Est GFR (CKD-EPI)AfAm (>60 ml/min/1.73 sqM) Est GFR (CKD-EPI)NonAf (>60 ml/min/1.73 sqM) Glucose (74-99) mg/dL Plasma Lactic Acid Godwin (0.7-2.0) mmol/L Calcium (8.4-10.2) mg/dL Total Bilirubin (0.2-1.3) mg/dL AST (14-36) U/L ALT (4-34) U/L Alkaline Phosphatase (38-126) U/L Total Protein (6.3-8.2) g/dL Albumin (3.5-5.0) g/dL Amylase (30-110) U/L Lipase (23-300) U/L Urine Color Yellow Urine Appearance Cloudy H (Clear) Urine pH 5.5 (5.0-8.0) Ur Specific [place] 1.024 (1.001-1.035) Urine Protein Trace H (Negative) Urine Glucose (UA) Negative (Negative) Urine Ketones Negative (Negative) Urine Blood Negative (Negative) Urine Nitrite Negative (Negative) Urine Bilirubin Negative (Negative) Urine Urobilinogen <2.0 (<2.0) mg/dL Ur Leukocyte Esterase Large H (Negative) Urine RBC 2 (0-5) /hpf Urine WBC 3 (0-5) /hpf Ur Squamous Epith Cells 4 (0-4) /hpf Urine Mucus Moderate H (None) /hpf Urine HCG, Qual Not Detected (Not Detectd) 08/18/24 08/18/24 Range/Units 18:09 18:09 WBC (3.8-10.6) k/uL RBC (3.80-5.40) m/uL Hgb (11.4-16.0) gm/dL Hct (34.0-46.0) % MCV (80.0-100.0) fL MCH (25.0-35.0) pg MCHC (31.0-37.0) g/dL RDW (11.5-15.5) % Plt Count (150-450) k/uL MPV Neutrophils % % Lymphocytes % % Monocytes % % Eosinophils % % Basophils % % Neutrophils # (1.3-7.7) k/uL Lymphocytes # (1.0-4.8) k/uL Monocytes # (0-1.0) k/uL Eosinophils # (0-0.7) k/uL Basophils # (0-0.2) k/uL Sodium 137 (137-145) mmol/L Potassium 3.9 (3.5-5.1) mmol/L Chloride 102 (98-107) mmol/L Carbon Dioxide 24 (22-30) mmol/L Anion Gap 11 mmol/L BUN 11 (7-17) mg/dL Creatinine 0.63 (0.52-1.04) mg/dL Est GFR (CKD-EPI)AfAm >90 (>60 ml/min/1.73 sqM) Est GFR (CKD-EPI)NonAf >90 (>60 ml/min/1.73 sqM) Glucose 102 H (74-99) mg/dL Plasma Lactic Acid Godwin 1.2 (0.7-2.0) mmol/L Calcium 9.3 (8.4-10.2) mg/dL Total Bilirubin 1.9 H (0.2-1.3) mg/dL AST 30 (14-36) U/L ALT 23 (4-34) U/L Alkaline Phosphatase 84 (38-126) U/L Total Protein 7.6 (6.3-8.2) g/dL Albumin 4.5 (3.5-5.0) g/dL Amylase 53 (30-110) U/L Lipase 66 (23-300) U/L Urine Color Urine Appearance (Clear) Urine pH (5.0-8.0) Ur Specific [place] (1.001-1.035) Urine Protein (Negative) Urine Glucose (UA) (Negative) Urine Ketones (Negative) Urine Blood (Negative) Urine Nitrite (Negative) Urine Bilirubin (Negative) Urine Urobilinogen (<2.0) mg/dL Ur Leukocyte Esterase (Negative) Urine RBC (0-5) /hpf Urine WBC (0-5) /hpf Ur Squamous Epith Cells (0-4) /hpf Urine Mucus (None) /hpf Urine HCG, Qual (Not Detectd) Disposition <Eloy Bella - Last Filed: 08/18/24 17:37> Is patient prescribed a controlled substance at d/c from ED?: No Time of Disposition: 22:00 <Sergey Shin - Last Filed: 08/18/24 22:00> Clinical Impression: Abdominal pain, TOA (tubo-ovarian abscess) Disposition: ADMITTED IP TO THIS HOSP Condition: Stable Referrals: Matias Blackburn [Primary Care Provider] - 1-2 days
[2024-08-18] MEDS: HYDROmorphone 0.5 MG/0.5 ML SYRINGE IVP STA ×2 (18:07→19:23)
[2024-08-18] MEDS: LACTATED RINGERS 1,000 ML IV ONE (18:09)
[2024-08-18 18:24] LABS: Basophils % (A) 0 %; Eosinophils # (A) 0.3 k/uL (0-0.7); Eosinophils % (A) 2 %; Lymphocytes # (A) 2.7 k/uL (1.0-4.8); Lymphocytes % (A) 15 %; MCH 28.7 pg (25.0-35.0); MCHC 32.6 g/dL (31.0-37.0); MCV 88.2 fL (80.0-100.0); Mean Platelet Volume 7.9; Monocytes # (A) 0.9 k/uL (0-1.0); Monocytes % (A) 5 %; Neutrophils # (A) 14.5 k/uL (1.3-7.7); Neutrophils % (A) 78 %; Platelet Count 353 k/uL (150-450); RBC 5.22 m/uL (3.80-5.40); RDW 13.7 % (11.5-15.5); WBC 18.6 k/uL (3.8-10.6)
[2024-08-18 18:28] LABS: Appearance,Urine Cloudy (Clear); Bilirubin,Urine Negative (Negative); Blood,Urine Negative (Negative); Color,Urine Yellow; Glucose,Urine (UA) Negative (Negative); Ketones,Urine Negative (Negative); Leukocyte Esterase,Urine Large (Negative); Mucus,Urine Moderate /hpf; Nitrite,Urine Negative (Negative); PH, Urine 5.5 (5.0-8.0); Protein,Urine Trace (Negative); RBC,Urine 2 /hpf (0-5); Specific Gravity,Urine 1.024 (1.001-1.035); Squamous Epithelial Cell,Urine 4 /hpf (0-4); Urobilinogen,Urine <2.0 mg/dL (<2.0); WBC,Urine 3 /hpf (0-5)
[2024-08-18 18:51] LABS: ALT 23 U/L (4-34); AST 30 U/L (14-36); African American GFR (CKD) >90 (>60 ml/min/1.73 sqM); Albumin 4.5 g/dL (3.5-5.0); Alkaline Phosphatase 84 U/L (38-126); Amylase 53 U/L (30-110); Anion Gap 11 mmol/L; Blood Urea Nitrogen 11 mg/dL (7-17); Calcium 9.3 mg/dL (8.4-10.2); Carbon Dioxide 24 mmol/L (22-30); Chloride 102 mmol/L (98-107); Glucose 102 mg/dL (74-99); Lipase 66 U/L (23-300); Non-African American GFR(CKD) >90 (>60 ml/min/1.73 sqM); Potassium 3.9 mmol/L (3.5-5.1); Sodium 137 mmol/L (137-145); Total Bilirubin 1.9 mg/dL (0.2-1.3); Total Protein 7.6 g/dL (6.3-8.2)
--- NOTE | 2024-08-18 19:21 | CT ---
EXAMINATION TYPE: CT abdomen pelvis w con DATE OF EXAM: 08/18/2024 6:54 PM COMPARISON: CT abdomen pelvis most recent from 06/17/2024. CLINICAL INDICATION: Female, 44 years old with history of RLQ pain; RLQ pain TECHNIQUE: Axial CT abdomen pelvis w con;Sagittal and coronal reformats were created on a separate w orkstation. Contrast used:100 mL of Isovue 300 with IV Contrast, (none if empty) Oral contrast used: without Oral Contrast (none if empty) CT DLP: 1143.6 mGycm, Automated exposure control for dose reduction was used. FINDINGS: LOWER CHEST: Unremarkable ABDOMEN LIVER: Unremarkable GALLBLADDER AND BILE DUCTS: Unremarkable. PANCREAS: Unremarkable. SPLEEN: Small splenule is present. ADRENAL GLANDS: Right adrenal 17 mm nodule is which is new from 01/02/2015 but similar to 06/17/2024. KIDNEYS AND URETERS: No evidence of hydronephrosis or renal calculus. The ureters are unremarkable. PELVIS BLADDER: No evidence for wall thickening or mass given limitations of exam. REPRODUCTIVE: * Extensive edema around the lower quadrant what is thought to be the ovary and/or fallopian tube me asuring at least 6.6 x 5.6 x 3.4 cm which could represent the ovary and/or combination ovary and fall opian tube. Possibly superimposed infection within the fallopian tube. * The uterus measures 12.9 x 7.6 x 8.9 cm with mild inflammation changes around the cervix. ABDOMEN & PELVIS STOMACH AND BOWEL: No evidence of bowel obstruction. The appendix is visualized and within normal hendrix its series 201 image 55 series 202 image 49. PERITONEUM/RETROPERITONEUM: No evidence of pneumoperitoneum or free fluid. VASCULATURE: No evidence of aortic aneurysm. MUSCULOSKELETAL: No acute osseous abnormalities LYMPH NODES: No gross evidence for lymphadenopathy. SOFT TISSUE/ABDOMINAL WALL: Unremarkable IMPRESSION: 1. Extensive inflammation changes in the right lower quadrant thought to be centered around the righ t ovary and right fallopian tube with multiple tortuous gonadal veins present. Findings concerning fo r either ovarian torsion and/or other etiology such as pelvic inflammatory disease with tubo-ovarian abscess. Further evaluation with pelvic ultrasound Doppler imaging of the ovary which is in the anter ior right low abdomen is recommended to exclude torsion and tubo-ovarian abscess. 2. The uterus is prominent/enlarged with some inflammation around the cervix attention on follow-up pelvic ultrasound. Correlate for pelvic inflammatory disease. 3. The appendix is normal. 4. New from 01/02/2015 right adrenal 17 mm nodule. Further evaluation with adrenal mass protocol mal mmended. Findings communicated to Sergey Shin on 08/18/2024 7:[address] Sergey Soler. [facility], , 08/18/2024 7:19 PM
--- NOTE | 2024-08-18 20:48 | US ---
EXAMINATION TYPE: US pelvis complete transvag DATE OF EXAM: 08/18/2024 COMPARISON: CT CLINICAL INDICATION: Female, 44 years old with history of rt pelvic pain; RLQ pain follow up to CT sc an limited due to bowel gas from contrast. TECHNIQUE: Transvaginal (TV) and Transabdominal (TA) . FINDINGS: EXAM MEASUREMENTS: Uterus: 12.2 x 7.0 x 9.3 cm Endometrial Stripe: .8 cm Right Ovary: 4.4 x 3.8 x 5.5 cm Left Ovary: 3.7 x 1.8 x 2.9 cm 1. Uterus: Anteverted Heterogenous nabothian cysts seen. 2. Endometrium: heterogenous 3. Right Ovary: Heterogenous complex not well visualized due to bowel gas. Dilated tubular structur e adjacent ovary seen on transabdominal imaging image 29 4. Left Ovary: wnl Spectral, color and waveform doppler imaging shows good arterial and venous flow within the ovaries ; there is no evidence for ovarian torsion. 5. Bilateral Adnexa: Complex area seen 6.4 x 7.4 cm 6. Posterior cul-de-sac: wnl IMPRESSION: Dilated tubular structure with debris adjacent to the ovary suggesting tubo-ovarian absce ss when correlating with given history and prior imaging. Gynecologic consultation recommended. Addit ional findings of pelvic inflammatory disease suggested-CT imaging. Findings communicated to Sergey Shin on 08/18/2024 8:[address] Sergey Soler. [facility], , 08/18/2024 8:46 PM
[2024-08-18] MEDS: HYDROmorphone 1 MG/ML 1 ML SYRINGE IVP STA (21:42)
[2024-08-18] MEDS ORDERED: HYDROmorphone 0.5 MG/0.5 ML SYRINGE IVP PRN (21:54)
[2024-08-18] MEDS ORDERED: NALOXONE 0.4 MG/ML 1 ML VIAL IV PRN (21:54)
[2024-08-18] MEDS: LACTATED RINGERS 1,000 ML IV SCH (22:25)
[2024-08-18] MEDS: metroNIDAZOLE-NS PMX 500 MG in SALINE 1 100ML.BAG IVPB STA (22:25)
[2024-08-19] MEDS: PIPERACILLIN-TAZOBACTAM 3.375 GM in SODIUM CHLORIDE 0.9% 100 ML IVPB SCH (00:07)
[2024-08-19] MEDS: HYDROmorphone 1 MG/ML 1 ML SYRINGE IVP PRN (00:11)
[2024-08-19] MEDS: ONDANSETRON 4 MG/2 ML VIAL IVP PRN (05:39)
[2024-08-19 07:09] LABS: Basophils % (A) 0 %; Eosinophils # (A) 0.1 k/uL (0-0.7); Eosinophils % (A) 1 %; HCT 39.5 % (34.0-46.0); HGB 12.7 gm/dL (11.4-16.0); Lymphocytes # (A) 1.4 k/uL (1.0-4.8); Lymphocytes % (A) 9 %; MCH 28.5 pg (25.0-35.0); MCHC 32.2 g/dL (31.0-37.0); MCV 88.7 fL (80.0-100.0); Mean Platelet Volume 8.1; Monocytes # (A) 0.9 k/uL (0-1.0); Monocytes % (A) 6 %; Neutrophils # (A) 12.5 k/uL (1.3-7.7); Neutrophils % (A) 83 %; Platelet Count 291 k/uL (150-450); RBC 4.45 m/uL (3.80-5.40); RDW 13.5 % (11.5-15.5)
[2024-08-19 07:29] LABS: ALT 16 U/L (4-34); AST 16 U/L (14-36); African American GFR (CKD) >90 (>60 ml/min/1.73 sqM); Albumin 3.5 g/dL (3.5-5.0); Alkaline Phosphatase 73 U/L (38-126); Anion Gap 8 mmol/L; Blood Urea Nitrogen 12 mg/dL (7-17); Calcium 8.2 mg/dL (8.4-10.2); Carbon Dioxide 24 mmol/L (22-30); Chloride 102 mmol/L (98-107); Glucose 109 mg/dL (74-99); Non-African American GFR(CKD) >90 (>60 ml/min/1.73 sqM); Sodium 134 mmol/L (137-145); Total Bilirubin 1.8 mg/dL (0.2-1.3); Total Protein 6.2 g/dL (6.3-8.2)
[2024-08-19] MEDS: DOXYCYCLINE 100 MG TABLET PO SCH (08:18)
--- NOTE | 2024-08-19 09:37 | P.OBCN ---
History of Present Illness Consult date: 08/19/24 Reason for consult: other (TOA, right lower quadrant pain) Chief complaint: RLQ pain History of present illness: Is a 44-year-old 2 para 2-0-0-3 that presented to the emergency department last evening with complaints of increasing right lower quadrant pain. Patient states she began having pain on night it began out of nowhere. Patient initially thought it was bowel related therefore she took a laxative without relief of her symptoms. Patient states she called out of work on Wednesday and presented to urgent care. Significant tenderness to palpation was appreciated at urgent care therefore she was encouraged to go to the emergency department. At the emergency department CAT scan and ultrasound with concerns for tubo-ovarian abscess. Patient denies any changes in vaginal discharge. She is amenorrheic from an ablation that was done approximately 2 to [address] Mcdonough. Patient denies any prior STD infections and has been in a monogamous relationship for the last 9 years. 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 #2 repeat section with tubal ligation Amenorrheic for the last 2 to 3 years secondary to ablation Denies any history of abnormal Pap smears states her last 1 was done just prior to ablation Review of Systems Constitutional: Denies chills, Denies fatigue, Denies fever Ears, nose, mouth and throat: Denies headache Cardiovascular: Denies leg edema Respiratory: Denies dyspnea Gastrointestinal: Reports nausea, Denies constipation, Denies diarrhea, Denies vomiting Genitourinary: Reports pelvic pain, Denies dyspareunia, Denies dysuria, Denies , Denies urinary frequency, Denies vaginal itching, Denies vaginal odor Menstruation: Reports amenorrhea Past Medical History Past Medical History: No Reported History Additional Past Medical History / Comment(s): First was a for twins, pt was hospitalized for 6 days due to "fluid around heart or lungs" History of Any Multi-Drug Resistant Organisms: None Reported Past Surgical History: Section, Uterine Ablation Past Anesthesia/Blood Transfusion Reactions: No Reported Reaction Past Psychological History: No Psychological Hx Reported Smoking Status: Never smoker Past Alcohol Use History: Occasional Past Drug Use History: None Reported - Past Family History Father Family Medical History: Cancer Additional Family Medical History / Comment(s): colon cancer Sister(s) Additional Family Medical History / Comment(s): heart mur mur Mother Family Medical History: Cancer Additional Family Medical History / Comment(s): breast cancer Medications and Allergies Allergies Allergy/AdvReac Type Severity Reaction Status Date / Time naproxen [From Aleve] Allergy Rash/Hives Verified 08/18/24 17:31 Exam Osteopathic Statement: *. No significant issues noted on an osteopathic st ructural exam other than those noted in the History and Physical/Consult. Vital Signs Temp Pulse Pulse Resp BP BP Pulse Ox 08/19/24 07:46 98.5 F 74 16 115/70 97 08/19/24 04:00 98.7 F 78 16 103/64 98 08/19/24 00:00 98.6 F 68 16 106/68 96 08/18/24 23:10 16 08/18/24 22:37 98.4 F 81 18 114/73 98 08/18/24 22:15 98.7 F 76 16 109/74 08/18/24 17:23 98.3 F 88 18 116/77 100 Intake and Output 08/18/24 08/19/24 08/19/24 22:59 06:59 14:59 Other: Voiding Method Toilet # Voids 1 Weight 88.451 kg Targeted physical exam is performed this date General Is a well-nourished well- developed female in no acute distress, she is resting comfortably in bed. Breathing appears nonlabored, abdomen is soft with tenderness in the right lower quadrant, guarding or rebound. Results Result Diagrams: 08/19/24 06:40 08/19/24 06:40 Abnormal Lab Results - Last 24 Hours (Table) 08/18/24 08/18/24 08/18/24 Range/Units 18:09 18:09 18:09 WBC 18.6 H (3.8-10.6) k/uL Neutrophils # 14.5 H (1.3-7.7) k/uL Sodium (137-145) mmol/L Glucose 102 H (74-99) mg/dL Calcium (8.4-10.2) mg/dL Total Bilirubin 1.9 H (0.2-1.3) mg/dL Total Protein (6.3-8.2) g/dL Urine Appearance Cloudy H (Clear) Urine Protein Trace H (Negative) Ur Leukocyte Esterase Large H (Negative) Urine Mucus Moderate H (None) /hpf 08/19/24 08/19/24 Range/Units 06:40 06:40 WBC 15.0 H (3.8-10.6) k/uL Neutrophils # 12.5 H (1.3-7.7) k/uL Sodium 134 L (137-145) mmol/L Glucose 109 H (74-99) mg/dL Calcium 8.2 L (8.4-10.2) mg/dL Total Bilirubin 1.8 H (0.2-1.3) mg/dL Total Protein 6.2 L (6.3-8.2) g/dL Urine Appearance (Clear) Urine Protein (Negative) Ur Leukocyte Esterase (Negative) Urine Mucus (None) /hpf Assessment and Plan (1) Abdominal pain Current Visit: Yes Status: Acute Code(s): R10.9 - UNSPECIFIED ABDOMINAL PAIN SNOMED Code(s): 96257938 (2) TOA (tubo-ovarian abscess) Current Visit: Yes Status: Acute Code(s): N70.93 - SALPINGITIS AND OOPHORITIS, UNSPECIFIED SNOMED Code(s): 44981044 Plan: 44-year-old female admitted last evening with presumed tubo-ovarian abscess bas ed on CT and ultrasound findings. Continue IV antibiotics per primary service, Zosyn and doxycycline Will allow patient to eat this morning given size of cystic structure in the adnexa and white count would recommend continued IV antibiotics, oral pain medication. Concerns for worsening of infection with surgical intervention. Will continue to follow along Plan discussed with patient and she states she would like to avoid surgical intervention if possible.All questions answered.
[2024-08-19] MEDS ORDERED: Acetaminophen-Codeine 300-30mg TAB PO PRN (09:39)
[2024-08-19] MEDS: METOCLOPRAMIDE 5 MG/ML 2 ML VIAL IVP STA (10:38)
[2024-08-19] MEDS: ACETAMINOPHEN TAB 325 MG TAB PO PRN (12:52)
[2024-08-19] MEDS: Acetaminophen-Codeine 300-30mg TAB PO PRN (16:29)
--- NOTE | 2024-08-19 23:09 | P.CONS ---
History of Present Illness - Reason for Consult Consult date: 08/19/24 Tubo-ovarian abscess Requesting physician: Sergey Shin - Chief Complaint Right-sided abdominal pain x 1 day - History of Present Illness Patient is a 44-year-old female with no significant past medical history presenting to the hospital for evaluation of right-sided abdominal pain that apparently started the night before presentation to the hospital patient was describing the pain to be sharp throbbing almost 10 out of 10 worse with right lower quadrant area without significant radiation patient did have associated bloating and decreased appetite but no vomiting denies of any diarrhea or constipation did have some urinary pressure but no urinary symptoms no vaginal drainage did have some chills but no high-grade fever with the symptoms the patient presented to hospital on arrival to the patient was afebrile no fever have been called subsequently patient was not tachycardic hypotensive or hypoxic patient did have white count of 18.6 with a left shift creatinine has been normal electrolytes are normal bilirubin elevated rest of the liver isms are normal urine did shows large leukocyte esterase with only 3 WBC patient did have a abdominal pelvis CT extensive and family changes in the right lower lower quadrant centered around the right ovary and right fallopian tube finding concerning for either ovarian torsion or tubo-ovarian abscess subsequently did have pelvic transvaginal ultrasound that was suggestive of dilated tubular structure with diuresis adjustability suggesting tubo-ovarian abscess patient treated with doxycycline and Zosyn infectious was consulted for further management of antibiotic therapy Review of Systems Positive point and negatives has been mentioned in the HPI, complete review of systems was performed and all other systems are negative Past Medical History Past Medical History: No Reported History Additional Past Medical History / Comment(s): First was a for twins, pt was hospitalized for 6 days due to "fluid around heart or lungs" History of Any Multi-Drug Resistant Organisms: None Reported Past Surgical History: Section, Uterine Ablation Past Anesthesia/Blood Transfusion Reactions: No Reported Reaction Past Psychological History: No Psychological Hx Reported Smoking Status: Never smoker Past Alcohol Use History: Occasional Past Drug Use History: None Reported - Past Family History Father Family Medical History: Cancer Additional Family Medical History / Comment(s): colon cancer Sister(s) Additional Family Medical History / Comment(s): heart mur mur Mother Family Medical History: Cancer Additional Family Medical History / Comment(s): breast cancer Medications and Allergies Allergies Allergy/AdvReac Type Severity Reaction Status Date / Time naproxen [From Aleve] Allergy Rash/Hives Verified 08/18/24 17:31 Physical Exam Vitals: Vital Signs Temp Pulse Pulse Resp BP BP Pulse Ox 08/19/24 12:45 98.4 F 88 16 104/69 96 08/19/24 07:46 98.5 F 74 16 115/70 97 08/19/24 04:00 98.7 F 78 16 103/64 98 08/19/24 00:00 98.6 F 68 16 106/68 96 08/18/24 23:10 16 08/18/24 22:37 98.4 F 81 18 114/73 98 08/18/24 22:15 98.7 F 76 16 109/74 08/18/24 17:23 98.3 F 88 18 116/77 100 Intake and Output 08/18/24 08/19/24 08/19/24 22:59 06:59 14:59 Other: Voiding Method Toilet # Voids 1 Weight 88.451 kg GENERAL DESCRIPTION: Middle-age female lying in bed, no distress. No tachypnea or accessory muscle of respiration use. HEENT: Shows Pallor , no scleral icterus. Oral mucous membrane is dry. No pharyngeal erythema or thrush NECK: Trachea central, no thyromegaly. LUNGS: Unlabored breathing. Clear to auscultation anteriorly. No wheeze or crackle. HEART: S1, S2, regular rate and rhythm. No loud murmur ABDOMEN: Soft, right lower quadrant tenderness , no guarding or rigidity, no organomegaly EXTREMITIES: No edema of feet. SKIN: No rash, no masses palpable. NEUROLOGICAL: The patient is awake, alert, oriented x3, mood and affect normal. Results CBC & Chem 7: 08/20/24 05:05 08/20/24 05:02 Labs: Abnormal Lab Results - Last 24 Hours (Table) 08/18/24 08/18/24 08/18/24 Range/Units 18:09 18:09 18:09 WBC 18.6 H (3.8-10.6) k/uL Neutrophils # 14.5 H (1.3-7.7) k/uL Sodium (137-145) mmol/L Glucose 102 H (74-99) mg/dL Calcium (8.4-10.2) mg/dL Total Bilirubin 1.9 H (0.2-1.3) mg/dL Total Protein (6.3-8.2) g/dL Urine Appearance Cloudy H (Clear) Urine Protein Trace H (Negative) Ur Leukocyte Esterase Large H (Negative) Urine Mucus Moderate H (None) /hpf 08/19/24 08/19/24 Range/Units 06:40 06:40 WBC 15.0 H (3.8-10.6) k/uL Neutrophils # 12.5 H (1.3-7.7) k/uL Sodium 134 L (137-145) mmol/L Glucose 109 H (74-99) mg/dL Calcium 8.2 L (8.4-10.2) mg/dL Total Bilirubin 1.8 H (0.2-1.3) mg/dL Total Protein 6.2 L (6.3-8.2) g/dL Urine Appearance (Clear) Urine Protein (Negative) Ur Leukocyte Esterase (Negative) Urine Mucus (None) /hpf Assessment and Plan (1) Leukocytosis Status: Acute Code(s): D72.829 - ELEVATED WHITE BLOOD CELL COUNT, UNSPECIFIED SNOMED Code(s): 924493221 (2) TOA (tubo-ovarian abscess) Status: Acute Code(s): N70.93 - SALPINGITIS AND OOPHORITIS, UNSPECIFIED SNOMED Code(s): 97846572 Plan: 1patient presented to hospital with right-sided abdominal pain acute onset with the abnormality seen on the CT as well as ultrasound suggestive of right sided tubo-ovarian abscess will need to cover for the enteric gram-negative both aerobes and anaerobes less likely atypical or STI as the patient seem to be involved with the monogomas relationship for over 9 years with the same partner 2-we will continue the patient on Zosyn 3.375 g every 8 hours discontinue doxycycline 3-ERP MANAGER is following the patient and will determine the timing of surgery at which time culture should be obtained Question concern answered We will follow on clinical condition and cultures to further adjust medication if needed Thank you for this consultation we will follow the patient along with you Dictation was produced using [employer] software. please excuse any grammatical, word or spelling errors. Time with Patient: Greater than 30
[2024-08-20 05:55] LABS: Basophils % (A) 0 %; Eosinophils # (A) 0.1 k/uL (0-0.7); Eosinophils % (A) 1 %; HCT 38.7 % (34.0-46.0); HGB 12.6 gm/dL (11.4-16.0); Lymphocytes # (A) 2.3 k/uL (1.0-4.8); Lymphocytes % (A) 20 %; MCH 29.2 pg (25.0-35.0); MCHC 32.6 g/dL (31.0-37.0); MCV 89.6 fL (80.0-100.0); Mean Platelet Volume 7.9; Monocytes # (A) 0.6 k/uL (0-1.0); Monocytes % (A) 6 %; Neutrophils % (A) 72 %; Platelet Count 302 k/uL (150-450); RBC 4.32 m/uL (3.80-5.40); RDW 13.6 % (11.5-15.5); WBC 11.2 k/uL (3.8-10.6)
[2024-08-20 06:06] LABS: African American GFR (CKD) >90 (>60 ml/min/1.73 sqM); Anion Gap 4 mmol/L; Blood Urea Nitrogen 9 mg/dL (7-17); Calcium 8.5 mg/dL (8.4-10.2); Carbon Dioxide 27 mmol/L (22-30); Chloride 100 mmol/L (98-107); Glucose 93 mg/dL (74-99); Non-African American GFR(CKD) >90 (>60 ml/min/1.73 sqM); Potassium 3.6 mmol/L (3.5-5.1); Sodium 131 mmol/L (137-145)
[2024-08-20 08:14] VITALS: RESP 16
--- NOTE | 2024-08-20 10:20 | P.PN ---
Subjective Progress Note Date: 08/20/24 Principal diagnosis: TOA 4-year-old female admitted for tubo-ovarian abscess. Patient was begun on Zosyn and doxycycline. On this hospital day #2 patient states she is feeling much improved. Pain is rating a 2. She was begun on Tylenol 3 yesterday for pain control and she states these are controlling her pain well. Patient states she is tolerating a regular diet. She denies nausea or vomiting. Objective - Vital Signs Vital signs: Vital Signs Temp 98.0 F 08/20/24 08:00 Pulse 71 08/20/24 08:00 Resp 16 08/20/24 08:00 BP 92/55 08/20/24 08:00 Pulse Ox 99 08/20/24 08:00 FiO2 Intake & Output 08/19/24 08/20/24 08/20/24 18:59 06:59 18:59 Intake Total 400 Balance 400 Intake: Intake, IV Titration 400 Amount Lactated Ringers 1,000 ml 300 @ 130 mls/hr IV .Q7H42M [facility] Rx#:[id number] Piperacillin-Tazobactam 3 100 .375 gm In Sodium Chloride 0.9% 100 ml @ 25 mls/hr IVPB Q8HR [facility] Rx# :[id number] - Constitutional General appearance: Present: average body habitus, cooperative, no acute distress - Respiratory Details: Breathing appears unlabored - Gastrointestinal Gastrointestinal Comment(s): No guarding or rebound - Psychiatric Psychiatric: Present: A&O x's 3, appropriate affect, intact judgment & insight - Labs CBC & Chem 7: 08/20/24 05:05 08/20/24 05:02 Labs: Abnormal Lab Results - Last 24 Hours (Table) 08/20/24 08/20/24 Range/Units 05:02 05:05 WBC 11.2 H (3.8-10.6) k/uL Neutrophils # 8.0 H (1.3-7.7) k/uL Sodium 131 L (137-145) mmol/L Microbiology - Last 24 Hours (Table) 08/18/24 20:45 Blood Culture - Preliminary Blood Assessment and Plan (1) Abdominal pain Current Visit: Yes Status: Acute Code(s): R10.9 - UNSPECIFIED ABDOMINAL PAIN SNOMED Code(s): 59270296 (2) TOA (tubo-ovarian abscess) Current Visit: Yes Status: Acute Code(s): N70.93 - SALPINGITIS AND OOPHORITIS, UNSPECIFIED SNOMED Code(s): 37498735 Plan: Patient is feeling much improved with decreasing leukocytosis. 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 She does follow with Dr. Mcdonough and is encouraged to make an appointment with him for follow-up care. Plan to DC home with Augmentin, Tylenol 3.
[2024-08-20 12:10] VITALS: BP 100/63; PULSE 82; TEMP 98.2
--- NOTE | 2024-08-20 15:22 | P.PN ---
Subjective Progress Note Date: 08/20/24 Principal diagnosis: Reason for follow-up is tubo-ovarian abscess Patient is a 44-year-old female with no significant past medical history presenting to the hospital for evaluation of right-sided abdominal pain, patient has been diagnosed with right-sided tubo-ovarian abscess prompting this consultation. On today's evaluation that is 08/20/2024, Patient is afebrile patient is currently on room air and denies having any shortness of breath, the patient denies any chest pain or cough, the patient denies any nausea vomiting mention significant improvement of the right-sided abdominal pain which is occasional about 2 out of 10 no vaginal drainage or urinary symptoms. Patient white count is down to 11.2 creatinine 0.63 blood cultures are pending Objective - Vital Signs Vital signs: Vital Signs Temp 98.2 F 08/20/24 12:00 Pulse 82 08/20/24 12:00 Resp 16 08/20/24 12:00 BP 100/63 08/20/24 12:00 Pulse Ox 98 08/20/24 12:00 FiO2 Intake & Output 08/19/24 08/20/24 08/20/24 18:59 06:59 18:59 Intake Total 400 Balance 400 Intake: Intake, IV Titration 400 Amount Lactated Ringers 1,000 ml 300 @ 130 mls/hr IV .Q7H42M [facility] Rx#:[id number] Piperacillin-Tazobactam 3 100 .375 gm In Sodium Chloride 0.9% 100 ml @ 25 mls/hr IVPB Q8HR [facility] Rx# :[id number] - Exam GENERAL DESCRIPTION: Middle-age female lying in bed in no distress RESPIRATORY SYSTEM: Unlabored breathing , decreased breath sounds at bases HEART: S1 S2 regular rate and rhythm , ABDOMEN: Soft , no tenderness EXTREMITIES: No edema feet - Labs CBC & Chem 7: 08/20/24 05:05 08/20/24 05:02 Labs: Abnormal Lab Results - Last 24 Hours (Table) 08/20/24 08/20/24 Range/Units 05:02 05:05 WBC 11.2 H (3.8-10.6) k/uL Neutrophils # 8.0 H (1.3-7.7) k/uL Sodium 131 L (137-145) mmol/L Microbiology - Last 24 Hours (Table) 08/18/24 20:45 Blood Culture - Preliminary Blood Assessment and Plan (1) Leukocytosis Status: Acute Code(s): D72.829 - ELEVATED WHITE BLOOD CELL COUNT, UNSPECIFIED SNOMED Code(s): 950491348 (2) TOA (tubo-ovarian abscess) Status: Acute Code(s): N70.93 - SALPINGITIS AND OOPHORITIS, UNSPECIFIED SNOMED Code(s): 17548826 Plan: 1patient presented to hospital with right-sided abdominal pain acute onset in t he abnormality seen on the CT as well as ultrasound suggestive of right sided tubo-ovarian abscess will need to cover for the enteric gram-negative rods anaerobes less likely atypical or STI as the patient seem to be involved with the homeless relationship for over 9 years with the same partner 2-patient has shown clinical improvement the patient white count is down to 11.1 patient has been cleared for discharge by OB this morning prescription for Augmentin has been written I have detailed discussion with the patient as well as with the family at the bedside slightly concerned about going home that quickly and advised her to stay in the hospital for IV antibiotics however the patient is feeling better wants to go home she has been instructed if any worsening of abdominal pain nausea vomiting or fever that she need to come to the hospital right away patient has been advised to follow-up with her OB in the outpatient setting as soon as possible, care discussed with admitting physician Dictation was produced using [employer] dictation software. please excuse any grammatical, word or spelling errors. Time with Patient: Less than 30
--- NOTE | 2024-08-21 00:42 | P.HPIM ---
History of Present Illness H&P Date: 08/19/24 Chief Complaint: Abdominal pain 44-year-old female presenting with s/o right lower quadrant abdominal pain (10/) since last night. Endorses associated bloating and decreased appetite. Denies fever, chills, chest pain, dyspnea, nausea/vomiting, diarrhea, constipation, dizziness, urinary symptoms, hematuria, vaginal bleeding/discharge. Blood work reveals WBC of 15.6, hemoglobin of 15 and platelet count of 353, sodium 137, potassium 3.9, BUNs/creatinine of 11/0.63, lactic acid level of 1.2, total bilirubin elevated at 1.9 UA reveals large leukocyte Estrace few WBCs Ultrasound of the pelvis showing concern for tubo-ovarian abscess CT of the abdomen and pelvis showing inflammatory change in the right lower quadrant with inflammation in the fallopian tube and the adjacent structures concerning for tubo-ovarian abscess, appendix is normal Patient started on ceftriaxone and Flagyl. Review of Systems REVIEW OF SYSTEMS: CONSTITUTIONAL: No fever, no malaise, no fatigue. HEENT: No recent visual problems or hearing problems. Denied any sore throat. CARDIOVASCULAR: No chest pain, orthopnea, PND, no palpitations, no syncope. PULMONARY: No shortness of breath, no cough, no hemoptysis. GASTROINTESTINAL: No diarrhea, no nausea, no vomiting, no abdominal pain. NEUROLOGICAL: No headaches, no weakness, no numbness. HEMATOLOGICAL: Denies any bleeding or petechiae. GENITOURINARY: Denies any burning micturition, frequency, or urgency. MUSCULOSKELETAL/RHEUMATOLOGICAL: Denies any joint pain, swelling, or any muscle pain. ENDOCRINE: Denies any polyuria or polydipsia. The rest of the 14-point review of systems is negative. Past Medical History Past Medical History: No Reported History Additional Past Medical History / Comment(s): First was a for twins, pt was hospitalized for 6 days due to "fluid around heart or lungs" History of Any Multi-Drug Resistant Organisms: None Reported Past Surgical History: Section, Uterine Ablation Past Anesthesia/Blood Transfusion Reactions: No Reported Reaction Past Psychological History: No Psychological Hx Reported Smoking Status: Never smoker Past Alcohol Use History: Occasional Past Drug Use History: None Reported - Past Family History Father Family Medical History: Cancer Additional Family Medical History / Comment(s): colon cancer Sister(s) Additional Family Medical History / Comment(s): heart mur mur Mother Family Medical History: Cancer Additional Family Medical History / Comment(s): breast cancer Medications and Allergies Allergies Allergy/AdvReac Type Severity Reaction Status Date / Time naproxen [From Aleve] Allergy Rash/Hives Verified 08/18/24 17:31 Physical Exam Vitals: Vital Signs Temp Pulse Pulse Resp BP BP Pulse Ox 08/19/24 07:46 98.5 F 74 16 115/70 97 08/19/24 04:00 98.7 F 78 16 103/64 98 08/19/24 00:00 98.6 F 68 16 106/68 96 08/18/24 23:10 16 08/18/24 22:37 98.4 F 81 18 114/73 98 08/18/24 22:15 98.7 F 76 16 109/74 08/18/24 17:23 98.3 F 88 18 116/77 100 Intake and Output 08/18/24 08/19/24 08/19/24 22:59 06:59 14:59 Other: Voiding Method Toilet # Voids 1 Weight 88.451 kg General: Well-appearing, nontoxic, no acute distress. Head: Normocephalic, atraumatic Eyes: PERRLA, EOMI ENT: Airway patent Chest: Nonlabored breathing Skin: No visual rash, normal skin tone Neuro: Alert and oriented 3 Musculoskeletal: No gross abnormalities Results CBC & Chem 7: 08/19/24 06:40 08/19/24 06:40 Labs: Abnormal Lab Results - Last 24 Hours (Table) 08/18/24 08/18/24 08/18/24 Range/Units 18:09 18:09 18:09 WBC 18.6 H (3.8-10.6) k/uL Neutrophils # 14.5 H (1.3-7.7) k/uL Sodium (137-145) mmol/L Glucose 102 H (74-99) mg/dL Calcium (8.4-10.2) mg/dL Total Bilirubin 1.9 H (0.2-1.3) mg/dL Total Protein (6.3-8.2) g/dL Urine Appearance Cloudy H (Clear) Urine Protein Trace H (Negative) Ur Leukocyte Esterase Large H (Negative) Urine Mucus Moderate H (None) /hpf 08/19/24 08/19/24 Range/Units 06:40 06:40 WBC 15.0 H (3.8-10.6) k/uL Neutrophils # 12.5 H (1.3-7.7) k/uL Sodium 134 L (137-145) mmol/L Glucose 109 H (74-99) mg/dL Calcium 8.2 L (8.4-10.2) mg/dL Total Bilirubin 1.8 H (0.2-1.3) mg/dL Total Protein 6.2 L (6.3-8.2) g/dL Urine Appearance (Clear) Urine Protein (Negative) Ur Leukocyte Esterase (Negative) Urine Mucus (None) /hpf Thrombosis Risk Factor Assmnt - Choose All That Apply Any of the Below Risk Factors Present?: No Other Risk Factors: No Other congenital or acquired thrombophilia - If yes, enter type in comment: No Thrombosis Risk Factor Assessment Level: Very Low Risk Assessment and Plan Assessment: Abdominal pain; tubo-ovarian abscess Patient has an elevated white blood cell count 18.6 which is predominantly neutrophils. CT concerning for tubo-ovarian abscess, ultrasound also suggestive of a tubo-ovarian abscess. 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 Leukocytosis; likely related to tubo-ovarian abscess; patient has been placed on IV antibiotics -We will monitor CBC and make further recommendations pending clinical response DVT prophylaxis; SCDs CODE STATUS; full code
--- NOTE | 2024-08-21 00:51 | P.DS ---
Providers Date of admission: 08/18/24 21:54 Attending physician: Brandon Nova Consults: 08/18/24 21:54 Consult Physician Routine Consulting Provider: Stephan Gama Consult Reason/Comments: TOA Do you want consulting provider notified?: Yes Consult Physician Urgent Consulting Provider: Rissa Mae Consult Reason/Comments: TOA Do you want consulting provider notified?: Already Contacted Primary care physician: Matias Blackburn [facility] Course: 44-year-old female presenting with s/o right lower quadrant abdominal pain (03/16) since last night. Endorses associated bloating and decreased appetite. Denies fever, chills, chest pain, dyspnea, nausea/vomiting, diarrhea, constipation, dizziness, urinary symptoms, hematuria, vaginal bleeding/discharge. Blood work reveals WBC of 15.6, hemoglobin of 15 and platelet count of 353, sodium 137, potassium 3.9, BUNs/creatinine of 11/0.63, lactic acid level of 1.2, total bilirubin elevated at 1.9 UA reveals large leukocyte Estrace few WBCs Ultrasound of the pelvis showing concern for tubo-ovarian abscess CT of the abdomen and pelvis showing inflammatory change in the right lower quadrant with inflammation in the fallopian tube and the adjacent structures concerning for tubo-ovarian abscess, appendix is normal Patient started on ceftriaxone and Flagyl. Abdominal pain; tubo-ovarian abscess Patient has an elevated white blood cell count 18.6 which is predominantly neutrophils. CT concerning for tubo-ovarian abscess, ultrasound also suggestive of a tubo-ovarian abscess. -Patient has been placed on IV ceftriaxone and Flagyl -Has been evaluated by [employer] -ID consulted; recommendations are pending -- Will monitor CBC, CRP and procalcitonin 2. Leukocytosis; likely related to tubo-ovarian abscess; patient has been placed on IV antibiotics -We will monitor CBC and make further recommendations pending clinical response patient showed improvement with IV antibiotics; was evaluated by Gyne and was recommended to continue with antibiotics; patient is cleared by Gyne but recommended to continue with IV antibiotics by ID; however patient insisted on being discharged despite ID recs Patient Condition at Discharge: Stable Plan - Discharge Summary Follow up Appointment(s)/Referral(s): Matias Blackburn [Primary Care Provider] - 1-2 days Patient Instructions/Handouts: Abscess (GEN) Discharge Disposition: HOME SELF-CARE
== END 2024-08-20 15:00 | disposition home or self-care (01) | DRG 759 ==
LOC: EC 16:49 → 4FBP 21:54
PROVIDERS: ADMIT Hospitalist; ATTEND Hospitalist
DX: N70.93 Salpingitis and oophoritis, unspecified (principal); D72.829 Elevated white blood cell count, unspecified
CPT/HCPCS: 36415; 74177; 76830; 76856; 80048; 80053; 81001; 81025; 82150; 83605; 83690; 85025; 87040; 93975; 96361; 96365; 96375; 96376; 99285

== ENCOUNTER 2024-09-07 16:02 | Emergency (ER) | payer OTHER ==
--- NOTE | 2024-09-07 16:24 | ED ---
Abdominal Pain HPI - General Chief Complaint: Abdominal Pain Stated Complaint: ABD Pain Time Seen by Provider: 09/07/24 16:14 Source: patient, RN notes reviewed Mode of arrival: ambulatory Limitations: no limitations - History of Present Illness Initial Comments: This is a 44-year-old female with history of tubo-ovarian cyst/abscess and uterine ablation presenting with right lower quadrant pain (06/16) since 1230 today. Patient states she woke from a nap with an intermittent "pinching" sensation in her right lower quadrant and associated light pink, then dark pink vaginal spotting that is ongoing. Patient was seen in this ER on 08/18/2024 for RLQ pain, diagnosed with tubo-ovarian abscess and admitted due to associated leukocytosis, requiring antibiotics. Patient states she recently finished her oral antibiotics and was scheduled for subsequent CT and ultrasound imaging next week. Denies fever, chills, chest pain, dyspnea, N/V/D, urinary symptoms, vaginal discharge. MD Complaint: abdominal pain Onset/Timin -: hour(s) Time: 12:30 Location: RLQ Radiation: none Migration to: no migration Severity scale (1-10): 1 Quality: other ("Pinching") Consistency: intermittent Associated Symptoms: other (Vaginal spotting) - Related Data Allergies Allergy/AdvReac Type Severity Reaction Status Date / Time naproxen [From Aleve] Allergy Rash/Hives Verified 09/07/24 16:07 Review of Systems ROS Statement: Those systems with pertinent positive or pertinent negative responses have been documented in the HPI. ROS Other: All systems not noted in ROS Statement are negative. Past Medical History Past Medical History: No Reported History Additional Past Medical History / Comment(s): First was a for twins, pt was hospitalized for 6 days due to "fluid around heart or lungs" History of Any Multi-Drug Resistant Organisms: None Reported Past Surgical History: Section, Uterine Ablation Past Anesthesia/Blood Transfusion Reactions: No Reported Reaction Past Psychological History: No Psychological Hx Reported Smoking Status: Never smoker Past Alcohol Use History: Occasional Past Drug Use History: None Reported - Past Family History Father Family Medical History: Cancer Additional Family Medical History / Comment(s): colon cancer Sister(s) Additional Family Medical History / Comment(s): heart mur mur Mother Family Medical History: Cancer Additional Family Medical History / Comment(s): breast cancer General Exam Limitations: no limitations General appearance: alert, in no apparent distress Head exam: Present: atraumatic, normocephalic, normal inspection Eye exam: Present: normal appearance, PERRL, EOMI. Absent: scleral icterus, conjunctival injection, periorbital swelling ENT exam: Present: normal exam, mucous membranes moist Neck exam: Present: normal inspection. Absent: tenderness, meningismus, lymphadenopathy Respiratory exam: Present: normal lung sounds bilaterally. Absent: respiratory distress, wheezes, rales, rhonchi, stridor Cardiovascular Exam: Present: regular rate, normal rhythm, normal heart sounds. Absent: systolic murmur, diastolic murmur, rubs, gallop, clicks GI/Abdominal exam: Present: soft, tenderness (Positive right lower quadrant and right adnexal tenderness without guarding. Positive RLQ tympanic tenderness.), normal bowel sounds. Absent: distended, guarding, rebound, rigid Extremities exam: Present: normal inspection, full ROM, normal capillary refill. Absent: tenderness, pedal edema, joint swelling, calf tenderness Back exam: Present: normal inspection. Absent: CVA tenderness (R), CVA tenderness (L) Neurological exam: Present: alert, oriented X3, CN II-XII intact Psychiatric exam: Present: normal affect, normal mood Skin exam: Present: warm, dry, intact, normal color. Absent: rash Course Vital Signs 09/07/24 09/07/24 16:04 18:55 Temperature 97.9 F 98.4 F Pulse Rate 77 62 Respiratory 18 18 Rate Blood Pressure 122/81 110/72 O2 Sat by Pulse 98 99 Oximetry Medical Decision Making - Medical Decision Making Was pt. sent in by a medical professional or institution (, PA, GASOLINE ATTENDANT, urgent care, hospital, or [place] health care facility...) When possible be specific @ -[No] Did you speak to anyone other than the patient for history (EMS, parent, family, police, friend...)? What history was obtained from this source @ -[No] Did you review nursing and triage notes (agree or disagree)? Why? @ -[I reviewed and agree with nursing and triage notes] Were old charts reviewed (outside hosp., previous admission, EMS record, old EKG, old radiological studies, urgent care reports/EKG's, [place] health care facility records)? Report findings @ -ER chart from 08/18/2024 revealing discovery of tubo-ovarian cyst and s ubsequent admission notes also reviewed Differential Diagnosis (chest pain, altered mental status, abdominal pain women, abdominal pain men, vaginal bleeding, weakness, fever, dyspnea, syncope, headac he, dizziness, GI bleed, back pain, seizure, CVA, palpatations, mental health, musculoskeletal)? @ -Differential Abdominal Pain Women: Appendicitis, Cholecystitis, diverticulosis, ischemic bowel, pancreatitis, hepatitis, UTI, gastroenteritis, AAA, incarcerated hernia, bowel obstruction, constipation, inflammatory bowel, hepatitis, peptic ulcer disease, splenic infarction, perforated viscus, vulvitis, ovarian torsion, PID, kidney stone, placenta abruption, this is not meant to be an all-inclusive list EKG interpreted by me (3pts min.). @ -Not done X-rays interpreted by me (1pt min.). @ -[None done] CT interpreted by me (1pt min.). @ -[None done] U/S interpreted by me (1pt. min.). @ -[None done] What testing was considered but not performed or refused? (CT, X-rays, U/S, labs)? Why? @ -[None] What meds were considered but not given or refused? Why? @ -[None] Did you discuss the management of the patient with other professionals (professionals i.e. , PA, GASOLINE ATTENDANT, lab, RT, psych nurse, social work associate, c software engineer, teacher, delinquency prevention officer, case picker)? Give summary @ -[No] Was smoking cessation discussed for >3mins.? @ -[No] Was critical care preformed (if so, how long)? @ -[No] Were there social determinants of health that impacted care today? How? (Homelessness, low income, unemployed, alcoholism, drug addiction, transportation, low edu. Level, literacy, decrease access to med. care, retirement, rehab)? @ -[No] Was there de-escalation of care discussed even if they declined (Discuss DNR or withdrawal of care, Hospice)? DNR status @ -[No] What co-morbidities impacted this encounter? (DM, HTN, Smoking, COPD, CAD, Cancer, CVA, ARF, Chemo, Hep., AIDS, mental health diagnosis, sleep apnea, morbid obesity)? @ -[None] Was patient admitted / discharged? Hospital course, mention meds given and route, prescriptions, significant lab abnormalities, going to OR and other pertinent info. @ -[hospital course] Undiagnosed new problem with uncertain prognosis? @ -[No] Drug Therapy requiring intensive monitoring for toxicity (Heparin, Nitro, Insulin, Cardizem)? @ -[No] Were any procedures done? @ -[No] Diagnosis/symptom? @ -[default] Acute, or Chronic, or Acute on Chronic? @ -Acute Uncomplicated (without systemic symptoms) or Complicated (systemic symptoms)? @ -Uncomplicated Side effects of treatment? @ -[No] Exacerbation, Progression, or Severe Exacerbation? @ -[No] Poses a threat to life or bodily function? How? (Chest pain, [place], [place], pneumonia, PE, COPD, DKA, ARF, appy, cholecystitis, CVA, Diverticulitis, Homicidal, Suicidal, threat to staff... and all critical care pts) @ -[No] - Lab Data Result diagrams: 09/07/24 16:38 09/07/24 16:38 Lab Results 09/07/24 09/07/24 09/07/24 Range/Units 16:38 16:38 16:38 WBC 8.7 (3.8-10.6) k/uL RBC 5.19 (3.80-5.40) m/uL Hgb 14.8 (11.4-16.0) gm/dL Hct 45.5 (34.0-46.0) % MCV 87.7 (80.0-100.0) fL MCH 28.5 (25.0-35.0) pg MCHC 32.5 (31.0-37.0) g/dL RDW 13.5 (11.5-15.5) % Plt Count 378 (150-450) k/uL MPV 8.1 Neutrophils % 66 % Lymphocytes % 24 % Monocytes % 4 % Eosinophils % 4 % Basophils % 1 % Neutrophils # 5.7 (1.3-7.7) k/uL Lymphocytes # 2.1 (1.0-4.8) k/uL Monocytes # 0.4 (0-1.0) k/uL Eosinophils # 0.3 (0-0.7) k/uL Basophils # 0.1 (0-0.2) k/uL Sodium 141 (137-145) mmol/L Potassium 4.0 (3.5-5.1) mmol/L Chloride 108 H (98-107) mmol/L Carbon Dioxide 24 (22-30) mmol/L Anion Gap 9 mmol/L BUN 14 (7-17) mg/dL Creatinine 0.66 (0.52-1.04) mg/dL Est GFR (CKD-EPI)AfAm >90 (>60 ml/min/1.73 sqM) Est GFR (CKD-EPI)NonAf >90 (>60 ml/min/1.73 sqM) Glucose 97 (74-99) mg/dL Plasma Lactic Acid Godwin 1.2 (0.7-2.0) mmol/L Calcium 9.3 (8.4-10.2) mg/dL Total Bilirubin 0.7 (0.2-1.3) mg/dL AST 20 (14-36) U/L ALT 15 (4-34) U/L Alkaline Phosphatase 73 (38-126) U/L Total Protein 7.5 (6.3-8.2) g/dL Albumin 4.4 (3.5-5.0) g/dL Amylase 67 (30-110) U/L Lipase 107 (23-300) U/L Urine Color Urine Appearance (Clear) Urine pH (5.0-8.0) Ur Specific [place] (1.001-1.035) Urine Protein (Negative) Urine Glucose (UA) (Negative) Urine Ketones (Negative) Urine Blood (Negative) Urine Nitrite (Negative) Urine Bilirubin (Negative) Urine Urobilinogen (<2.0) mg/dL Ur Leukocyte Esterase (Negative) Urine RBC (0-5) /hpf Urine WBC (0-5) /hpf Ur Squamous Epith Cells (0-4) /hpf Urine Mucus (None) /hpf 09/07/24 Range/Units 16:38 WBC (3.8-10.6) k/uL RBC (3.80-5.40) m/uL Hgb (11.4-16.0) gm/dL Hct (34.0-46.0) % MCV (80.0-100.0) fL MCH (25.0-35.0) pg MCHC (31.0-37.0) g/dL RDW (11.5-15.5) % Plt Count (150-450) k/uL MPV Neutrophils % % Lymphocytes % % Monocytes % % Eosinophils % % Basophils % % Neutrophils # (1.3-7.7) k/uL Lymphocytes # (1.0-4.8) k/uL Monocytes # (0-1.0) k/uL Eosinophils # (0-0.7) k/uL Basophils # (0-0.2) k/uL Sodium (137-145) mmol/L Potassium (3.5-5.1) mmol/L Chloride (98-107) mmol/L Carbon Dioxide (22-30) mmol/L Anion Gap mmol/L BUN (7-17) mg/dL Creatinine (0.52-1.04) mg/dL Est GFR (CKD-EPI)AfAm (>60 ml/min/1.73 sqM) Est GFR (CKD-EPI)NonAf (>60 ml/min/1.73 sqM) Glucose (74-99) mg/dL Plasma Lactic Acid Godwin (0.7-2.0) mmol/L Calcium (8.4-10.2) mg/dL Total Bilirubin (0.2-1.3) mg/dL AST (14-36) U/L ALT (4-34) U/L Alkaline Phosphatase (38-126) U/L Total Protein (6.3-8.2) g/dL Albumin (3.5-5.0) g/dL Amylase (30-110) U/L Lipase (23-300) U/L Urine Color Light Yellow Urine Appearance Clear (Clear) Urine pH 5.5 (5.0-8.0) Ur Specific [place] 1.021 (1.001-1.035) Urine Protein Negative (Negative) Urine Glucose (UA) Negative (Negative) Urine Ketones Negative (Negative) Urine Blood Moderate H (Negative) Urine Nitrite Negative (Negative) Urine Bilirubin Negative (Negative) Urine Urobilinogen <2.0 (<2.0) mg/dL Ur Leukocyte Esterase Trace H (Negative) Urine RBC 67 H (0-5) /hpf Urine WBC 2 (0-5) /hpf Ur Squamous Epith Cells 3 (0-4) /hpf Urine Mucus Rare H (None) /hpf Disposition Clinical Impression: TOA (tubo-ovarian abscess) Disposition: HOME SELF-CARE Condition: Good Instructions (If sedation given, give patient instructions): Ovarian Abscess (ED) Additional Instructions: Follow-up with RECEIVER DISPATCHER in the next 24-48 hours. Is patient prescribed a controlled substance at d/c from ED?: No Referrals: Matias Blackburn [Primary Care Provider] - 1-2 days Nancy Noland MD [STAFF PHYSICIAN] - 1-2 days Time of Disposition: 20:24
[2024-09-07] MEDS: SODIUM CHLORIDE 0.9% 1,000 ML IV ONE (16:38)
[2024-09-07 16:53] LABS: Basophils # (A) 0.1 k/uL (0-0.2); Basophils % (A) 1 %; Eosinophils # (A) 0.3 k/uL (0-0.7); Eosinophils % (A) 4 %; HCT 45.5 % (34.0-46.0); HGB 14.8 gm/dL (11.4-16.0); Lymphocytes # (A) 2.1 k/uL (1.0-4.8); Lymphocytes % (A) 24 %; MCH 28.5 pg (25.0-35.0); MCHC 32.5 g/dL (31.0-37.0); MCV 87.7 fL (80.0-100.0); Mean Platelet Volume 8.1; Monocytes # (A) 0.4 k/uL (0-1.0); Monocytes % (A) 4 %; Neutrophils # (A) 5.7 k/uL (1.3-7.7); Neutrophils % (A) 66 %; Platelet Count 378 k/uL (150-450); RBC 5.19 m/uL (3.80-5.40); RDW 13.5 % (11.5-15.5); WBC 8.7 k/uL (3.8-10.6)
[2024-09-07 17:00] LABS: Appearance,Urine Clear (Clear); Bilirubin,Urine Negative (Negative); Blood,Urine Moderate (Negative); Color,Urine Light Yellow; Glucose,Urine (UA) Negative (Negative); Ketones,Urine Negative (Negative); Leukocyte Esterase,Urine Trace (Negative); Mucus,Urine Rare /hpf; Nitrite,Urine Negative (Negative); PH, Urine 5.5 (5.0-8.0); Protein,Urine Negative (Negative); RBC,Urine 67 /hpf (0-5); Specific Gravity,Urine 1.021 (1.001-1.035); Squamous Epithelial Cell,Urine 3 /hpf (0-4); Urobilinogen,Urine <2.0 mg/dL (<2.0); WBC,Urine 2 /hpf (0-5)
[2024-09-07 17:03] LABS: ALT 15 U/L (4-34); AST 20 U/L (14-36); African American GFR (CKD) >90 (>60 ml/min/1.73 sqM); Albumin 4.4 g/dL (3.5-5.0); Alkaline Phosphatase 73 U/L (38-126); Amylase 67 U/L (30-110); Anion Gap 9 mmol/L; Blood Urea Nitrogen 14 mg/dL (7-17); Calcium 9.3 mg/dL (8.4-10.2); Carbon Dioxide 24 mmol/L (22-30); Chloride 108 mmol/L (98-107); Glucose 97 mg/dL (74-99); Lipase 107 U/L (23-300); Non-African American GFR(CKD) >90 (>60 ml/min/1.73 sqM); Sodium 141 mmol/L (137-145); Total Bilirubin 0.7 mg/dL (0.2-1.3); Total Protein 7.5 g/dL (6.3-8.2)
--- NOTE | 2024-09-07 17:35 | CT ---
EXAMINATION TYPE: CT abdomen pelvis w con CT DLP: 1121.6 mGycm, Automated exposure control for dose reduction was used. DATE OF EXAM: 09/07/2024 5:13 PM COMPARISON: CT abdomen pelvis 08/18/2024, 06/17/2024, pelvic ultrasound 08/18/2024, 10/08/2021 CLINICAL INDICATION:Female, 44 years old with history of RLQ abdominal pain; RLQ pain TECHNIQUE: Standard CT of the abdomen and pelvis following the administration of 100 cc of Isovue 3 00 IV contrast material. Coronal and sagittal reformats were performed. FINDINGS: LOWER CHEST: Linear scarring and/or atelectasis within the right middle lobe. ABDOMEN LIVER: Unremarkable GALLBLADDER AND BILE DUCTS: Unremarkable. PANCREAS: Unremarkable. SPLEEN: Unremarkable. ADRENAL GLANDS: Left adrenal gland is unremarkable. Stable right adrenal gland 1.7 cm nodule. KIDNEYS AND URETERS: No evidence of hydronephrosis or renal calculus. The kidneys enhance symmetrical ly. Contrast is demonstrated within both collecting systems and proximal ureters on the delayed phase . PELVIS BLADDER: Underdistended but grossly unremarkable. REPRODUCTIVE: Anteverted uterus with left ovarian 2.9 cm probable dominant follicular cyst. Decreased size and inflammatory changes of right paraovarian cystic structure. There is mildly prominent bilat eral fallopian tubes. ABDOMEN & PELVIS STOMACH AND BOWEL: Stomach and duodenum are unremarkable. The appendix is within normal limits. No fo gema bowel wall thickening or surrounding inflammatory changes. No evidence of bowel obstruction. PERITONEUM: No evidence of pneumoperitoneum or free fluid. VASCULATURE: No evidence of aortic aneurysm. MUSCULOSKELETAL: No acute osseous abnormalities LYMPH NODES: No evidence for lymphadenopathy. SOFT TISSUE/ABDOMINAL WALL: Unremarkable IMPRESSION: 1. Decreased size and inflammatory changes of previously seen right paraovarian cystic structure fro m prior exam. This was concerning for tubo-ovarian abscess. Residual abscess not excluded. The append ix is within normal limits. Bilateral prominent bilateral fallopian tubes. Correlate for PID. Conside r further evaluation pelvic ultrasound. 2. Stable indeterminate right adrenal gland 1.7 cm nodule. Probably benign. Consider 12 month follow -up adrenal CT. [facility], , 09/07/2024 5:32 PM
[2024-09-07 18:56] VITALS: TEMP 98.4
--- NOTE | 2024-09-07 20:04 | US ---
EXAMINATION TYPE: US pelvis complete transvag DATE OF EXAM: 09/07/2024 COMPARISON: US & CT 2024 CLINICAL INDICATION: Female, 44 years old with history of RLQ pain, history of ovarian cyst/abscess; TECHNIQUE: Transvaginal (TV) and Transabdominal (TA) . FINDINGS: Date of LMP: Patient had ablation EXAM MEASUREMENTS: Uterus: 11.2 x 6.1 x 7.5 cm Endometrial Stripe: 1.6 cm Right Ovary: not seen Left Ovary: not seen 1. Uterus: anteverted, heterogeneous, multiple nabothian cysts 2. Endometrium: fluid within fundal portion 3. Right Ovary: not seen with certainty 4. Left Ovary: not seen due to overlying bowel gas 5. Bilateral Adnexa: right adnexa - 6.8cm complex area seen 6. Posterior cul-de-sac: wnl Anteverted heterogeneous uterus without focal lesion. Multiple cervical nabothian cysts. Complex flui d identified within the fundal portion of the endometrial canal. The endometrium itself is not thicke james measuring up to 9 mm. Right ovary is not definitively visualized. The left ovary is not visualize d due to overlying bowel gas. There is a complex lesion within the right adnexa measuring up to 6.8 c m. There is some suggested peripheral color flow. Somewhat tubular in appearance. No free fluid. IMPRESSION: 1. Right adnexal complex cystic structure with suggested tubular appearance. This is at site of prev iously seen suggested tubo-ovarian abscess from 08/18/2024. Residual/recurrent tubo-ovarian abscess is not excluded. There is decreased size and inflammatory changes on concurrent CT. Consider gynecologi c consultation. 2. Complex fluid within the endometrium which may represent blood products. 3. Nonvisualization of both ovaries due to overlying bowel gas. [facility], , 09/07/2024 8:02 PM
[2024-09-07 20:40] VITALS: BP 111/74; PULSE 68; RESP 17
[2024-09-08 14:14] LABS: C. trachomatis,PCR Negative (Negative); N. gonorrhoeae,PCR Negative (Negative)
== END 2024-09-07 20:40 | disposition home or self-care (01) ==
LOC: EC 16:02
DX: N70.93 Salpingitis and oophoritis, unspecified (principal); Z88.6 Allergy status to analgesic agent
CPT/HCPCS: 36415; 80053; 82150; 83605; 83690; 85025; 81001; 87491; 87591; 76856; 76830; 74177; 99284; 96360; Q9967

== ENCOUNTER 2024-09-14 12:50 | Emergency (ER) | payer OTHER ==
[2024-09-14 13:02] VITALS: TEMP 97.8
--- NOTE | 2024-09-14 13:08 | ED ---
General Adult HPI - General Source: patient Mode of arrival: ambulatory Limitations: no limitations <Iván Diaz - Last Filed: 09/14/24 13:08> <Ebony Huggins - Last Filed: 09/14/24 19:46> - General Chief complaint: Abdominal Pain Stated complaint: abd pain - History of Present Illness Initial comments: Quick note: 44-year-old female with acute on chronic abdominal pain. Patient states she has had multiple workups regarding her abdominal pain including ultrasounds and CTs within the last several weeks. She was sent here to the em ergency department by primary care physician's office. States that she is having worsening pain to the right lower quadrant. (Iván Diaz) - Related Data Allergies Allergy/AdvReac Type Severity Reaction Status Date / Time naproxen [From Aleve] Allergy Rash/Hives Verified 09/14/24 13:02 Review of Systems ROS Other: All systems not noted in ROS Statement are negative. <Iván Diaz - Last Filed: 09/14/24 13:08> ROS Other: All systems not noted in ROS Statement are negative. <Ebony Huggins - Last Filed: 09/14/24 19:46> ROS Statement: Those systems with pertinent positive or pertinent negative responses have been documented in the HPI. Past Medical History Past Medical History: No Reported History Additional Past Medical History / Comment(s): First was a for twins, pt was hospitalized for 6 days due to "fluid around heart or lungs" History of Any Multi-Drug Resistant Organisms: None Reported Past Surgical History: Section, Uterine Ablation Past Anesthesia/Blood Transfusion Reactions: No Reported Reaction Past Psychological History: No Psychological Hx Reported Smoking Status: Never smoker Past Alcohol Use History: Occasional Past Drug Use History: None Reported - Past Family History Father Family Medical History: Cancer Additional Family Medical History / Comment(s): colon cancer Sister(s) Additional Family Medical History / Comment(s): heart mur mur Mother Family Medical History: Cancer Additional Family Medical History / Comment(s): breast cancer <Iván Diaz - Last Filed: 09/14/24 13:08> General Exam Limitations: no limitations <Iván Diaz - Last Filed: 09/14/24 13:08> - General Exam Comments Initial Comments: Visual Physical Exam Vital signs reviewed General: Well-appearing, nontoxic, no acute distress. Head: Normocephalic, atraumatic Eyes: PERRLA, EOMI ENT: Airway patent Chest: Nonlabored breathing Skin: No visual rash, normal skin tone Neuro: Alert and oriented 3 Musculoskeletal: No gross abnormalities (Iván Diaz) Course Vital Signs 09/14/24 09/14/24 12:59 17:01 Temperature 97.8 F Pulse Rate 78 64 Respiratory 20 16 Rate Blood Pressure 100/61 O2 Sat by Pulse 96 99 Oximetry Medical Decision Making - Lab Data Result diagrams: 09/14/24 13:12 09/14/24 13:12 <Ebony Huggins - Last Filed: 09/14/24 19:46> - Lab Data Lab Results 09/14/24 09/14/24 09/14/24 Range/Units 13:12 13:12 13:12 WBC 10.14 H (4.50-10.00) 10*3/uL RBC 5.10 (4.10-5.20) 10*6/uL Hgb 14.7 (12.0-15.0) g/dL Hct 43.1 (37.2-46.3) % MCV 84.5 (80.0-97.0) fL MCH 28.8 (27.0-32.0) pg MCHC 34.1 (32.0-37.0) g/dL Plt Count 324 (140-440) 10*3/uL MPV 9.6 (9.5-12.2) fL Immature Gran % (Auto) 0.4 % Neutrophils % 70.6 % Lymphocytes % 20.9 % Monocytes % 5.9 % Eosinophils % 1.8 % Basophils % 0.4 % Immature Gran # 0.04 (0.00-0.04) 10*3/uL Neutrophils # 7.16 (1.80-7.70) 10*3/uL Lymphocytes # 2.12 (0.90-5.00) 10*3/uL Monocytes # 0.60 (0.20-1.00) 10*3/uL Eosinophils # 0.18 (0.04-0.35) 10*3/uL Basophils # 0.04 (0.00-0.10) 10*3/uL Sodium 137 (137-145) mmol/L Potassium 4.4 (3.5-5.1) mmol/L Chloride 101 (98-107) mmol/L Carbon Dioxide 26 (22-30) mmol/L Anion Gap 10 mmol/L BUN 12 (7-17) mg/dL Creatinine 0.59 (0.52-1.04) mg/dL Est GFR (CKD-EPI)AfAm >90 (>60 ml/min/1.73 sqM) Est GFR (CKD-EPI)NonAf >90 (>60 ml/min/1.73 sqM) Glucose 98 (74-99) mg/dL Plasma Lactic Acid Godwin 1.1 (0.7-2.0) mmol/L Calcium 9.6 (8.4-10.2) mg/dL Total Bilirubin 1.1 (0.2-1.3) mg/dL AST 21 (14-36) U/L ALT 14 (4-34) U/L Alkaline Phosphatase 82 (38-126) U/L Total Protein 7.9 (6.3-8.2) g/dL Albumin 4.7 (3.5-5.0) g/dL Lipase 60 (23-300) U/L HCG, Quant <2.4 mIU/mL Urine Color Urine Appearance (Clear) Urine pH (5.0-8.0) Ur Specific [place] (1.001-1.035) Urine Protein (Negative) Urine Glucose (UA) (Negative) Urine Ketones (Negative) Urine Blood (Negative) Urine Nitrite (Negative) Urine Bilirubin (Negative) Urine Urobilinogen (<2.0) mg/dL Ur Leukocyte Esterase (Negative) Urine RBC (0-5) /hpf Urine WBC (0-5) /hpf Ur Squamous Epith Cells (0-4) /hpf Urine Mucus (None) /hpf 09/14/24 Range/Units 16:13 WBC (4.50-10.00) 10*3/uL RBC (4.10-5.20) 10*6/uL Hgb (12.0-15.0) g/dL Hct (37.2-46.3) % MCV (80.0-97.0) fL MCH (27.0-32.0) pg MCHC (32.0-37.0) g/dL Plt Count (140-440) 10*3/uL MPV (9.5-12.2) fL Immature Gran % (Auto) % Neutrophils % % Lymphocytes % % Monocytes % % Eosinophils % % Basophils % % Immature Gran # (0.00-0.04) 10*3/uL Neutrophils # (1.80-7.70) 10*3/uL Lymphocytes # (0.90-5.00) 10*3/uL Monocytes # (0.20-1.00) 10*3/uL Eosinophils # (0.04-0.35) 10*3/uL Basophils # (0.00-0.10) 10*3/uL Sodium (137-145) mmol/L Potassium (3.5-5.1) mmol/L Chloride (98-107) mmol/L Carbon Dioxide (22-30) mmol/L Anion Gap mmol/L BUN (7-17) mg/dL Creatinine (0.52-1.04) mg/dL Est GFR (CKD-EPI)AfAm (>60 ml/min/1.73 sqM) Est GFR (CKD-EPI)NonAf (>60 ml/min/1.73 sqM) Glucose (74-99) mg/dL Plasma Lactic Acid Godwin (0.7-2.0) mmol/L Calcium (8.4-10.2) mg/dL Total Bilirubin (0.2-1.3) mg/dL AST (14-36) U/L ALT (4-34) U/L Alkaline Phosphatase (38-126) U/L Total Protein (6.3-8.2) g/dL Albumin (3.5-5.0) g/dL Lipase (23-300) U/L HCG, Quant mIU/mL Urine Color Yellow Urine Appearance Cloudy H (Clear) Urine pH 5.5 (5.0-8.0) Ur Specific [place] 1.022 (1.001-1.035) Urine Protein Negative (Negative) Urine Glucose (UA) Negative (Negative) Urine Ketones Negative (Negative) Urine Blood Negative (Negative) Urine Nitrite Negative (Negative) Urine Bilirubin Negative (Negative) Urine Urobilinogen <2.0 (<2.0) mg/dL Ur Leukocyte Esterase Small H (Negative) Urine RBC 4 (0-5) /hpf Urine WBC 1 (0-5) /hpf Ur Squamous Epith Cells 7 H (0-4) /hpf Urine Mucus Few H (None) /hpf Disposition <Iván Diaz - Last Filed: 09/14/24 13:08> Is patient prescribed a controlled substance at d/c from ED?: No Time of Disposition: 19:46 <Ebony Huggins - Last Filed: 09/14/24 19:46> Clinical Impression: Abdominal pain Disposition: HOME SELF-CARE Condition: Good Instructions (If sedation given, give patient instructions): Abdominal Pain (ED) Additional Instructions: Follow-up with PCP and MANAGER OF APPLICATION DEVELOPMENT. Report back to ER for any new or worsening symptoms. Referrals: Matias Blackburn [Primary Care Provider] - 1-2 days Rissa Mae DO [Doctor of Osteopathic Medicine] - 1-2 days
[2024-09-14 13:24] LABS: Basophils # (A) 0.04 10*3/uL (0.00-0.10); Basophils % (A) 0.4 %; Eosinophils # (A) 0.18 10*3/uL (0.04-0.35); Eosinophils % (A) 1.8 %; HCT 43.1 % (37.2-46.3); HGB 14.7 g/dL (12.0-15.0); Lymphocytes # (A) 2.12 10*3/uL (0.90-5.00); Lymphocytes % (A) 20.9 %; MCH 28.8 pg (27.0-32.0); MCHC 34.1 g/dL (32.0-37.0); MCV 84.5 fL (80.0-97.0); Mean Platelet Volume 9.6 fL (9.5-12.2); Monocytes % (A) 5.9 %; Neutrophils # (A) 7.16 10*3/uL (1.80-7.70); Neutrophils % (A) 70.6 %; Platelet Count 324 10*3/uL (140-440); RDW 13.1 % (11.5-14.5); WBC 10.14 10*3/uL (4.50-10.00)
[2024-09-14 13:38] LABS: ALT 14 U/L (4-34); AST 21 U/L (14-36); African American GFR (CKD) >90 (>60 ml/min/1.73 sqM); Albumin 4.7 g/dL (3.5-5.0); Alkaline Phosphatase 82 U/L (38-126); Anion Gap 10 mmol/L; Blood Urea Nitrogen 12 mg/dL (7-17); Calcium 9.6 mg/dL (8.4-10.2); Carbon Dioxide 26 mmol/L (22-30); Chloride 101 mmol/L (98-107); Glucose 98 mg/dL (74-99); Lipase 60 U/L (23-300); Non-African American GFR(CKD) >90 (>60 ml/min/1.73 sqM); Potassium 4.4 mmol/L (3.5-5.1); Sodium 137 mmol/L (137-145); Total Bilirubin 1.1 mg/dL (0.2-1.3); Total Protein 7.9 g/dL (6.3-8.2)
[2024-09-14 13:54] LABS: HCG,Quantitative Serum <2.4 mIU/mL
[2024-09-14 16:45] LABS: Appearance,Urine Cloudy (Clear); Bilirubin,Urine Negative (Negative); Blood,Urine Negative (Negative); Color,Urine Yellow; Glucose,Urine (UA) Negative (Negative); Ketones,Urine Negative (Negative); Leukocyte Esterase,Urine Small (Negative); Mucus,Urine Few /hpf; Nitrite,Urine Negative (Negative); PH, Urine 5.5 (5.0-8.0); Protein,Urine Negative (Negative); RBC,Urine 4 /hpf (0-5); Specific Gravity,Urine 1.022 (1.001-1.035); Squamous Epithelial Cell,Urine 7 /hpf (0-4); Urobilinogen,Urine <2.0 mg/dL (<2.0); WBC,Urine 1 /hpf (0-5)
[2024-09-14 17:02] VITALS: RESP 16
[2024-09-14] MEDS: HYDROmorphone 0.5 MG/0.5 ML SYRINGE IVP STA (17:31)
[2024-09-14] MEDS: SODIUM CHLORIDE 0.9% 1,000 ML IV ONE (17:31)
[2024-09-14 20:01] VITALS: BP 103/61; PULSE 55
== END 2024-09-14 20:01 | disposition home or self-care (01) ==
LOC: EC 12:50
DX: R10.31 Right lower quadrant pain (principal); Z88.6 Allergy status to analgesic agent
CPT/HCPCS: 36415; 80053; 83605; 83690; 85025; 81001; 84702; 99284; 96374; 96361; J1171

== ENCOUNTER 2024-12-14 23:40 | Emergency (ER) | payer OTHER ==
--- NOTE | 2024-12-15 00:23 | ED ---
General Adult HPI - General Source: patient, RN notes reviewed Mode of arrival: ambulatory Limitations: no limitations <Yessica Barrera - Last Filed: 12/15/24 00:21> <Ebony Huggins - Last Filed: 12/21/24 16:45> - General Chief complaint: Abdominal Pain Stated complaint: Abd pain Time Seen by Provider: 12/14/24 23:51 - History of Present Illness Initial comments: Quick [id number] female presenting to the ER with complaints of right lower groin/abdominal pain with radiation to her right back/flank over the past day. She denies urinary or bowel habit changes. She has a history of an inguinal hernia repair with a surgeon out of [facility]. Denies chest pain, fevers, or chills, or constipation. (Yessica Barrera) 44-year-old female presenting with chief complaint of abdominal pain. Pain is located in the right lower quadrant and has some radiation to the back. This is a sharp pain. She reports that she has recent history of inguinal hernia repair at [facility]. She denies any dysuria, hematuria, urgency, frequency, vaginal bleeding or other abnormal discharge. No diarrhea or constipation. No fever or chills. (Ebony Huggins) - Related Data Allergies Allergy/AdvReac Type Severity Reaction Status Date / Time naproxen [From Aleve] Allergy Rash/Hives Verified 12/14/24 23:55 Review of Systems ROS Other: All systems not noted in ROS Statement are negative. <Yessica Barrera - Last Filed: 12/15/24 00:21> ROS Other: All systems not noted in ROS Statement are negative. <Ebony Huggins - Last Filed: 12/21/24 16:45> ROS Statement: Those systems with pertinent positive or pertinent negative responses have been documented in the HPI. Past Medical History Past Medical History: No Reported History Additional Past Medical History / Comment(s): First was a for twins, pt was hospitalized for 6 days due to "fluid around heart or lungs" History of Any Multi-Drug Resistant Organisms: None Reported Past Surgical History: Section, Uterine Ablation Past Anesthesia/Blood Transfusion Reactions: No Reported Reaction Past Psychological History: No Psychological Hx Reported Smoking Status: Never smoker Past Alcohol Use History: Occasional Past Drug Use History: None Reported - Past Family History Father Family Medical History: Cancer Additional Family Medical History / Comment(s): colon cancer Sister(s) Additional Family Medical History / Comment(s): heart mur mur Mother Family Medical History: Cancer Additional Family Medical History / Comment(s): breast cancer <Tameka Barreraoe - Last Filed: 12/15/24 00:21> General Exam Limitations: no limitations <StiTameka danoe - Last Filed: 12/15/24 00:21> Limitations: no limitations General appearance: alert, in no apparent distress Head exam: Present: atraumatic, normocephalic, normal inspection Eye exam: Present: normal appearance, EOMI Neck exam: Present: normal inspection. Absent: meningismus Respiratory exam: Present: normal lung sounds bilaterally. Absent: respiratory distress, wheezes, rales, rhonchi, stridor Cardiovascular Exam: Present: regular rate, normal rhythm, normal heart sounds. Absent: systolic murmur, diastolic murmur, rubs, gallop, clicks GI/Abdominal exam: Present: soft, tenderness. Absent: distended, guarding, rebound, rigid Neurological exam: Present: alert, oriented X3 Psychiatric exam: Present: normal affect, normal mood Skin exam: Present: warm, dry, normal color <Ebony Huggins - Last Filed: 12/21/24 16:45> - General Exam Comments Initial Comments: Visual Physical Exam Vital signs reviewed General: Well-appearing, nontoxic, no acute distress. Head: Normocephalic, atraumatic Eyes: PERRLA, EOMI ENT: Airway patent Chest: Nonlabored breathing Skin: No visual rash, normal skin tone Neuro: Alert and oriented 3 Musculoskeletal: No gross abnormalities (Stieler,Yessica) Course Vital Signs 12/14/24 12/15/24 12/15/24 23:52 01:08 03:20 Temperature 98.5 F Pulse Rate 68 56 L 60 Respiratory 18 18 16 Rate Blood Pressure 116/63 118/74 118/57 O2 Sat by Pulse 100 99 99 Oximetry 12/15/24 12/15/24 12/15/24 04:33 05:44 05:45 Temperature 98.4 F Pulse Rate 67 74 74 Respiratory 20 17 20 Rate Blood Pressure 112/63 107/72 107/72 O2 Sat by Pulse 100 99 99 Oximetry Medical Decision Making <Yessica Barrera - Last Filed: 12/15/24 00:21> - Lab Data Result diagrams: 12/15/24 01:02 12/15/24 01:02 <BhavnaKjdanilo - Last Filed: 12/21/24 16:45> - Medical Decision Making I completed the quick note portion of this chart signed Yessica Barrera PA-C (Yessica Barrera) Was pt. sent in by a medical professional or institution (SHELLY Mayer, CHEF PASSENGER VESSEL, urgent care, hospital, or alf...) When possible be specific @ -No Did you speak to anyone other than the patient for history (EMS, parent, family, police, friend...)? What history was obtained from this source @ -No Did you review nursing and triage notes (agree or disagree)? Why? @ -I reviewed and agree with nursing and triage notes Were old charts reviewed (outside hosp., previous admission, EMS record, old EKG, old radiological studies, urgent care reports/EKG's, alf records)? Report findings @ -No old charts were reviewed Differential Diagnosis (chest pain, altered mental status, abdominal pain women, abdominal pain men, vaginal bleeding, weakness, fever, dyspnea, syncope, head ache, dizziness, GI bleed, back pain, seizure, CVA, palpatations, mental health, musculoskeletal)? @ -MDM Differential Abdominal Pain Women: Appendicitis, Cholecystitis, diverticulosis, ischemic bowel, pancreatitis, hepatitis, UTI, gastroenteritis, AAA, incarcerated hernia, bowel obstruction, constipation, inflammatory bowel, hepatitis, peptic ulcer disease, splenic infarction, perforated viscus, vulvitis, ovarian torsion, PID, kidney stone, placenta abruption... This is not meant to be an all-inclusive list EKG interpreted by me (3pts min.). @ -As above X-rays interpreted by me (1pt min.). @ -None done CT interpreted by me (1pt min.). @ -CT shows no nephrolithiasis hydronephrosis or obstructive uropathy. Right ovarian cyst measures 3.4 x 2.7 cm U/S interpreted by me (1pt. min.). @ -Ultrasound shows thickened endometrial stripe to 2.7 cm. No increased flow. Recommended hysterosonography or MRI. 4.2 cm right ovary with 3.4 cm cyst. Normal blood flow. What testing was considered but not performed or refused? (CT, X-rays, U/S, labs)? Why? @ -None What meds were considered but not given or refused? Why? @ -None Did you discuss the management of the patient with other professionals (professionals i.e. DrJeny, PA, CHEF PASSENGER VESSEL, lab, RT, psych nurse, mental health social worker, email producer, teacher, canine enforcement officer, rehabilitation caseworker)? Give summary @ -No Was smoking cessation discussed for >3mins.? @ -No Was critical care preformed (if so, how long)? @ -No Were there social determinants of health that impacted care today? How? (Homelessness, low income, unemployed, alcoholism, drug addiction, transpo rtation, low edu. Level, literacy, decrease access to med. care, senior care, rehab)? @ -No Was there de-escalation of care discussed even if they declined (Discuss DNR or withdrawal of care, Hospice)? DNR status @ -No What co-morbidities impacted this encounter? (DM, HTN, Smoking, COPD, CAD, Cancer, CVA, ARF, Chemo, Hep., AIDS, mental health diagnosis, sleep apnea, morbid obesity)? @ -None Was patient admitted / discharged? Hospital course, mention meds given and route, prescriptions, significant lab abnormalities, going to OR and other pertinent info. @ -44-year-old female presented chief complaint of right lower quadrant pain. Workup was initiated by triage and patient was later placed in room and examined by myself. White count 15.1. Remainder of lab work is grossly unremarkable. Negative hCG. Urine shows no signs of infection. CT shows evidence of ovarian cyst. Ultrasound shows no evidence of torsion. Patient is educated on all of today's findings and the need for follow-up with PLATFORM ARCHITECT. Follow-up with PCP. Report back to ER with any new or worsening symptoms. Discussed return parameters and answered all questions. Patient conveyed verbal understanding and agreed to the plan. I discussed this case in detail with my attending Dr. Ruiz Undiagnosed new problem with uncertain prognosis? @ -No Drug Therapy requiring intensive monitoring for toxicity (Heparin, Nitro, Insulin, Cardizem)? @ -No Were any procedures done? @ -No Diagnosis/symptom? @ -Pelvic pain, ovarian cyst Acute, or Chronic, or Acute on Chronic? @ -Acute Uncomplicated (without systemic symptoms) or Complicated (systemic symptoms)? @ -Uncomplicated Side effects of treatment? @ -No Exacerbation, Progression, or Severe Exacerbation? @ -No Poses a threat to life or bodily function? How? (Chest pain, [place], [place], pneumonia, PE, COPD, DKA, ARF, appy, cholecystitis, CVA, Diverticulitis, Homicidal, Suicidal, threat to staff... and all critical care pts) @ -Unlikely (Ebony Huggins) - Lab Data Lab Results 12/15/24 12/15/24 12/15/24 Range/Units 01:02 01:02 01:02 WBC 15.10 H (4.50-10.00) 10*3/uL RBC 4.78 (4.10-5.20) 10*6/uL Hgb 14.0 (12.0-15.0) g/dL Hct 40.5 (37.2-46.3) % MCV 84.7 (80.0-97.0) fL MCH 29.3 (27.0-32.0) pg MCHC 34.6 (32.0-37.0) g/dL Plt Count 318 (140-440) 10*3/uL MPV 9.6 (9.5-12.2) fL Immature Gran % (Auto) 0.3 % Neutrophils % 77.8 % Lymphocytes % 15.0 % Monocytes % 5.7 % Eosinophils % 0.9 % Basophils % 0.3 % Immature Gran # 0.04 (0.00-0.04) 10*3/uL Neutrophils # 11.75 H (1.80-7.70) 10*3/uL Lymphocytes # 2.26 (0.90-5.00) 10*3/uL Monocytes # 0.86 (0.20-1.00) 10*3/uL Eosinophils # 0.14 (0.04-0.35) 10*3/uL Basophils # 0.05 (0.00-0.10) 10*3/uL Sodium 137 (137-145) mmol/L Potassium 4.1 (3.5-5.1) mmol/L Chloride 104 (98-107) mmol/L Carbon Dioxide 23 (22-30) mmol/L Anion Gap 10 mmol/L BUN 10 (7-17) mg/dL Creatinine 0.56 (0.52-1.04) mg/dL Est GFR (CKD-EPI)AfAm >90 (>60 ml/min/1.73 sqM) Est GFR (CKD-EPI)NonAf >90 (>60 ml/min/1.73 sqM) Glucose 95 (74-99) mg/dL Plasma Lactic Acid Godwin (0.7-2.0) mmol/L Calcium 9.6 (8.4-10.2) mg/dL Total Bilirubin 1.0 (0.2-1.3) mg/dL AST 16 (14-36) U/L ALT 10 (4-34) U/L Alkaline Phosphatase 90 (38-126) U/L Total Protein 7.3 (6.3-8.2) g/dL Albumin 4.3 (3.5-5.0) g/dL Urine Color Colorless Urine Appearance Clear (Clear) Urine pH 7.5 (5.0-8.0) Ur Specific [place] 1.007 (1.001-1.035) Urine Protein Negative (Negative) Urine Glucose (UA) Negative (Negative) Urine Ketones Negative (Negative) Urine Blood Negative (Negative) Urine Nitrite Negative (Negative) Urine Bilirubin Negative (Negative) Urine Urobilinogen <2.0 (<2.0) mg/dL Ur Leukocyte Esterase Negative (Negative) Urine HCG, Qual (Not Detectd) 12/15/24 12/15/24 Range/Units 01:02 03:15 WBC (4.50-10.00) 10*3/uL RBC (4.10-5.20) 10*6/uL Hgb (12.0-15.0) g/dL Hct (37.2-46.3) % MCV (80.0-97.0) fL MCH (27.0-32.0) pg MCHC (32.0-37.0) g/dL Plt Count (140-440) 10*3/uL MPV (9.5-12.2) fL Immature Gran % (Auto) % Neutrophils % % Lymphocytes % % Monocytes % % Eosinophils % % Basophils % % Immature Gran # (0.00-0.04) 10*3/uL Neutrophils # (1.80-7.70) 10*3/uL Lymphocytes # (0.90-5.00) 10*3/uL Monocytes # (0.20-1.00) 10*3/uL Eosinophils # (0.04-0.35) 10*3/uL Basophils # (0.00-0.10) 10*3/uL Sodium (137-145) mmol/L Potassium (3.5-5.1) mmol/L Chloride (98-107) mmol/L Carbon Dioxide (22-30) mmol/L Anion Gap mmol/L BUN (7-17) mg/dL Creatinine (0.52-1.04) mg/dL Est GFR (CKD-EPI)AfAm (>60 ml/min/1.73 sqM) Est GFR (CKD-EPI)NonAf (>60 ml/min/1.73 sqM) Glucose (74-99) mg/dL Plasma Lactic Acid Godwin 1.2 (0.7-2.0) mmol/L Calcium (8.4-10.2) mg/dL Total Bilirubin (0.2-1.3) mg/dL AST (14-36) U/L ALT (4-34) U/L Alkaline Phosphatase (38-126) U/L Total Protein (6.3-8.2) g/dL Albumin (3.5-5.0) g/dL Urine Color Urine Appearance (Clear) Urine pH (5.0-8.0) Ur Specific [place] (1.001-1.035) Urine Protein (Negative) Urine Glucose (UA) (Negative) Urine Ketones (Negative) Urine Blood (Negative) Urine Nitrite (Negative) Urine Bilirubin (Negative) Urine Urobilinogen (<2.0) mg/dL Ur Leukocyte Esterase (Negative) Urine HCG, Qual Not Detected (Not Detectd) Disposition <Yessica Barrera - Last Filed: 12/15/24 00:21> Is patient prescribed a controlled substance at d/c from ED?: No Time of Disposition: 04:14 <Ebony Huggins - Last Filed: 12/21/24 16:45> Clinical Impression: Pelvic pain, Ovarian cyst Disposition: HOME SELF-CARE Condition: Good Instructions (If sedation given, give patient instructions): Ovarian Cyst (ED) Additional Instructions: Follow-up with your PLATFORM ARCHITECT. Report back to ER with any new or worsening symptoms. Referrals: Matias Blackburn [Primary Care Provider] - 1-2 days Rissa Mae DO [Doctor of Osteopathic Medicine] - 1-2 days
--- NOTE | 2024-12-15 01:16 | CT ---
EXAM: CT Abdomen and Pelvis Without Intravenous Contrast CLINICAL HISTORY: ITS.REASON CT Reason: R lower ab pain w/ radiation into back/flank TECHNIQUE: Axial computed tomography images of the abdomen and pelvis without intravenous contrast. CTDI is 10.9 mGy and DLP is 707.3 mGy-cm. This CT exam was performed using one or more of the following dose reduction techniques: automated exposure control, adjustment of the mA and/or kV according to patient size, and/or use of iterative reconstruction technique. COMPARISON: No relevant prior studies available. FINDINGS: Lung bases: Unremarkable. No mass. No consolidation. ABDOMEN: Liver: Unremarkable. Gallbladder and bile ducts: Unremarkable. No calcified stones. No ductal dilation. Pancreas: Unremarkable. No ductal dilation. Spleen: Unremarkable. No splenomegaly. Adrenals: Unremarkable. No mass. Kidneys and ureters: Unremarkable. No nephrolithiasis, hydronephrosis, or obstructive uropathy. Stomach and bowel: Unremarkable. No obstruction. No mucosal thickening. PELVIS: Appendix: No findings to suggest acute appendicitis. Bladder: Unremarkable. No stones. Reproductive: Right ovarian cyst measures 3.4 x 2.7 cm. ABDOMEN and PELVIS: Intraperitoneal space: Unremarkable. No free air. No significant fluid collection. Bones/joints: No acute fracture. No dislocation. Soft tissues: Unremarkable. Vasculature: Unremarkable. No abdominal aortic aneurysm. Lymph nodes: Unremarkable. No enlarged lymph nodes. IMPRESSION: 1. No nephrolithiasis, hydronephrosis, or obstructive uropathy. 2. Right ovarian cyst measures 3.4 x 2.7 cm.
[2024-12-15 01:33] LABS: Basophils # (A) 0.05 10*3/uL (0.00-0.10); Basophils % (A) 0.3 %; Eosinophils # (A) 0.14 10*3/uL (0.04-0.35); Eosinophils % (A) 0.9 %; HCT 40.5 % (37.2-46.3); HGB 14.0 g/dL (12.0-15.0); Lymphocytes # (A) 2.26 10*3/uL (0.90-5.00); Lymphocytes % (A) 15.0 %; MCH 29.3 pg (27.0-32.0); MCHC 34.6 g/dL (32.0-37.0); MCV 84.7 fL (80.0-97.0); Monocytes # (A) 0.86 10*3/uL (0.20-1.00); Monocytes % (A) 5.7 %; Neutrophils # (A) 11.75 10*3/uL (1.80-7.70); Neutrophils % (A) 77.8 %; Platelet Count 318 10*3/uL (140-440); RBC 4.78 10*6/uL (4.10-5.20); RDW 14.1 % (11.5-14.5); WBC 15.10 10*3/uL (4.50-10.00)
[2024-12-15] MEDS: MORPHINE SULFATE 4 MG/ML SYRINGE IVP STA (01:33)
[2024-12-15 01:34] LABS: Bilirubin,Urine Negative (Negative); Blood,Urine Negative (Negative); Color,Urine Colorless; Glucose,Urine (UA) Negative (Negative); Ketones,Urine Negative (Negative); Leukocyte Esterase,Urine Negative (Negative); Nitrite,Urine Negative (Negative); PH, Urine 7.5 (5.0-8.0); Protein,Urine Negative (Negative); Specific Gravity,Urine 1.007 (1.001-1.035); Urobilinogen,Urine <2.0 mg/dL (<2.0)
[2024-12-15 01:49] LABS: ALT 10 U/L (4-34); AST 16 U/L (14-36); African American GFR (CKD) >90 (>60 ml/min/1.73 sqM); Albumin 4.3 g/dL (3.5-5.0); Alkaline Phosphatase 90 U/L (38-126); Anion Gap 10 mmol/L; Blood Urea Nitrogen 10 mg/dL (7-17); Calcium 9.6 mg/dL (8.4-10.2); Carbon Dioxide 23 mmol/L (22-30); Chloride 104 mmol/L (98-107); Glucose 95 mg/dL (74-99); Non-African American GFR(CKD) >90 (>60 ml/min/1.73 sqM); Potassium 4.1 mmol/L (3.5-5.1); Sodium 137 mmol/L (137-145); Total Protein 7.3 g/dL (6.3-8.2)
--- NOTE | 2024-12-15 03:01 | US ---
EXAM: US Pelvis Transvaginal CLINICAL HISTORY: ITS.REASON US Reason: pelvic pain TECHNIQUE: Real-time transvaginal pelvic ultrasound with image documentation. Transvaginal imaging was used for better evaluation of the endometrium and adnexa. COMPARISON: No relevant prior studies available. FINDINGS: Uterus/cervix: No myometrial mass. Thickened endometrial stripe to 2. 7 cm. Right ovary: 4.2 cm right ovary with 3.4 cm cyst. Normal blood flow. Left ovary: Not visualized due to bowel gas. Free fluid: No free fluid. IMPRESSION: Thickened endometrial stripe to 2.7 cm. No increased flow. Recommend hysterosonography or MRI. 4.2 cm right ovary with 3.4 cm cyst. Normal blood flow.
[2024-12-15] MEDS: HYDROmorphone 1 MG/ML 1 ML SYRINGE IVP STA (04:33)
[2024-12-15 05:45] VITALS: BP 107/72; PULSE 74
[2024-12-15 05:50] VITALS: RESP 20; TEMP 98.4
== END 2024-12-15 05:45 | disposition home or self-care (01) ==
LOC: EC 23:40
DX: N83.201 Unspecified ovarian cyst, right side (principal); Z88.6 Allergy status to analgesic agent
CPT/HCPCS: 36415; 80053; 83605; 85025; 81003; 81025; 93976; 76830; 74176; 99284; 96374; 96375; J2270; J1171